=== PATIENT | female | born 1990 | race Caucasian/White ===

== ENCOUNTER 2020-10-12 05:51 | Inpatient (IN) | payer OTHER ==
[2020-10-12] MEDS ORDERED: HYDROmorphone 1 MG/ML 1 ML SYRINGE IVP STA (05:53)
[2020-10-12] MEDS ORDERED: LORazepam 2 MG/ML INJ IV STA (05:53)
[2020-10-12] MEDS ORDERED: ONDANSETRON 4 MG/2 ML VIAL IVP STA (05:53)
[2020-10-12] MEDS ORDERED: SODIUM CHLORIDE 0.9% 1,000 ML IV STA (05:53)
[2020-10-12] MEDS ORDERED: diphenhydrAMINE 50 MG/ML 1 ML VIAL IVP STA (05:53)
[2020-10-12] MEDS ORDERED: hydrALAZINE HCL 20 MG/ML 1 ML VIAL IVP STA (05:54)
[2020-10-12] MEDS ORDERED: ALBUTEROL NEBULIZED 2.5 MG/3 ML INHALATION STA (05:55)
[2020-10-12] MEDS ORDERED: IPRATROPIUM-ALBUTEROL 3 ML NEB INHALATION STA (05:55)
--- NOTE | 2020-10-12 05:55 | ED ---
Recheck HPI - General Stated Complaint: OANH Time Seen by Provider: 10/12/20 05:53 Source: RN notes reviewed, old records reviewed Mode of arrival: EMS Limitations: no limitations - History of Present Illness Initial Comments: This is a 30-year-old female DF for evaluation. Patient is complicated medical history. She coming in as a transfer patient night for hypertensive emergency with CHF and respiratory failure on BiPAP and acute on chronic renal failure. Patient is awake and alert here in the ER she does complain of anxiety and is complaining of generalized pain. Patient states that she was at a different hospital prior to [facility] signed out AMA after arguing with her physicians there. On presentation to [facility] she was significantly short of breath. Patient at this time is just complaining of anxiety and pain she does admit to shortness of breath when the BiPAP is off Complaint: abnormal lab (CHF,HTNemergency), other (pain,anxiety) -: days(s) Returns Today for: Called Because of Abnormal Lab/Test (CHF), persistent/worsening pain related to initial visit Symptoms Since Prior Visit: worsening pain Context: planned re-check (patient transfer at request of patient) Associated Symptoms: chills, shortness of breath Treatments Prior to Arrival: IV/IO, other medications, Given Pain Meds on - Related Data Allergies Allergy/AdvReac Type Severity Reaction Status Date / Time azithromycin Allergy Unknown Verified 10/12/20 06:13 divalproex sodium Allergy Unknown Verified 10/12/20 06:13 [From [facility]] Review of Systems ROS Statement: Those systems with pertinent positive or pertinent negative responses have been documented in the HPI. ROS Other: All systems not noted in ROS Statement are negative. General Exam General appearance: alert, anxious, in distress, cachectic Head exam: Present: atraumatic, normocephalic, normal inspection Eye exam: Present: normal appearance, PERRL, EOMI. Absent: scleral icterus, conjunctival injection, periorbital swelling ENT exam: Present: normal exam, mucous membranes moist Neck exam: Present: normal inspection. Absent: tenderness, meningismus, lymphadenopathy Respiratory exam: Present: respiratory distress, accessory muscle use, decreased breath sounds, prolonged expiratory. Absent: wheezes, rales, rhonchi, stridor Cardiovascular Exam: Present: normal rhythm, tachycardia, normal heart sounds. Absent: systolic murmur, diastolic murmur, rubs, gallop, clicks GI/Abdominal exam: Present: soft, normal bowel sounds. Absent: distended, tenderness, guarding, rebound, rigid Extremities exam: Present: normal inspection, full ROM, normal capillary refill. Absent: tenderness, pedal edema, joint swelling, calf tenderness Back exam: Present: normal inspection Neurological exam: Present: alert, oriented X3, CN II-XII intact Psychiatric exam: Present: normal affect, normal mood Skin exam: Present: warm, dry, intact, normal color. Absent: rash Course Vital Signs 10/12/20 10/12/20 10/12/20 05:52 06:00 06:23 Temperature 98.1 F Pulse Rate 98 96 93 Respiratory 20 Rate Blood Pressure 211/137 O2 Sat by Pulse 100 Oximetry 10/12/20 10/12/20 10/12/20 06:40 06:42 06:44 Temperature Pulse Rate 130 H 135 H Respiratory 18 Rate Blood Pressure 203/140 204/132 194/130 O2 Sat by Pulse 98 99 Oximetry 10/12/20 10/12/20 10/12/20 06:46 06:48 06:50 Temperature Pulse Rate Respiratory Rate Blood Pressure 181/127 184/120 154/115 O2 Sat by Pulse Oximetry 10/12/20 10/12/20 10/12/20 06:52 06:54 06:55 Temperature Pulse Rate 135 H Respiratory 19 Rate Blood Pressure 174/124 148/104 151/99 O2 Sat by Pulse 98 Oximetry - Reevaluation(s) Reevaluation #1: 10/12/20 06:58 Medical record is reviewed Reevaluation #2: 10/12/20 06:58 Spoke with transferring physician Transfer paperwork has been reviewed - Consultations Consultation #1: Spoke with agrees to admit this patient Medical Decision Making - Medical Decision Making 30 female accepted in transfer severe hypertensive emergency with CHF. Patient has just complains of pain here in the emergency department chest pain. Severe anxiety, to be admitted for BP control, Patient feeling improved. - Lab Data Result diagrams: 10/12/20 06:17 10/12/20 06:17 Lab Results 10/12/20 10/12/20 10/12/20 Range/Units 06:17 06:17 06:17 WBC 17.1 H (3.8-10.6) k/uL RBC 3.57 L (3.80-5.40) m/uL Hgb 11.4 (11.4-16.0) gm/dL Hct 33.2 L (34.0-46.0) % MCV 93.0 (80.0-100.0) fL MCH 31.8 (25.0-35.0) pg MCHC 34.2 (31.0-37.0) g/dL RDW 15.2 (11.5-15.5) % Plt Count 290 (150-450) k/uL MPV 7.6 Neutrophils % 91 % Lymphocytes % 4 % Monocytes % 2 % Eosinophils % 2 % Basophils % 1 % Neutrophils # 15.6 H (1.3-7.7) k/uL Lymphocytes # 0.7 L (1.0-4.8) k/uL Monocytes # 0.4 (0-1.0) k/uL Eosinophils # 0.3 (0-0.7) k/uL Basophils # 0.1 (0-0.2) k/uL PT 10.3 (9.0-12.0) sec INR 1.0 (<1.2) APTT 22.9 (22.0-30.0) sec Sodium 138 (137-145) mmol/L Potassium 4.2 (3.5-5.1) mmol/L Chloride 108 H (98-107) mmol/L Carbon Dioxide 20 L (22-30) mmol/L Anion Gap 10 mmol/L BUN 48 H (7-17) mg/dL Creatinine 2.59 H (0.52-1.04) mg/dL Est GFR (CKD-EPI)AfAm 27 (>60 ml/min/1.73 sqM) Est GFR (CKD-EPI)NonAf 24 (>60 ml/min/1.73 sqM) Glucose 107 H (74-99) mg/dL Plasma Lactic Acid Isaac (0.7-2.0) mmol/L Calcium 9.1 (8.4-10.2) mg/dL Phosphorus 6.0 H (2.5-4.5) mg/dL Magnesium 2.2 (1.6-2.3) mg/dL Total Bilirubin 0.3 (0.2-1.3) mg/dL AST 63 H (14-36) U/L ALT 55 H (4-34) U/L Alkaline Phosphatase 194 H (38-126) U/L Creatine Kinase 36 (30-135) U/L C-Reactive Protein 0.8 (<1.0) mg/dL NT-Pro-B Natriuret Pep pg/mL Total Protein 6.4 (6.3-8.2) g/dL Albumin 4.2 (3.5-5.0) g/dL 10/12/20 10/12/20 Range/Units 06:17 06:17 WBC (3.8-10.6) k/uL RBC (3.80-5.40) m/uL Hgb (11.4-16.0) gm/dL Hct (34.0-46.0) % MCV (80.0-100.0) fL MCH (25.0-35.0) pg MCHC (31.0-37.0) g/dL RDW (11.5-15.5) % Plt Count (150-450) k/uL MPV Neutrophils % % Lymphocytes % % Monocytes % % Eosinophils % % Basophils % % Neutrophils # (1.3-7.7) k/uL Lymphocytes # (1.0-4.8) k/uL Monocytes # (0-1.0) k/uL Eosinophils # (0-0.7) k/uL Basophils # (0-0.2) k/uL PT (9.0-12.0) sec INR (<1.2) APTT (22.0-30.0) sec Sodium (137-145) mmol/L Potassium (3.5-5.1) mmol/L Chloride (98-107) mmol/L Carbon Dioxide (22-30) mmol/L Anion Gap mmol/L BUN (7-17) mg/dL Creatinine (0.52-1.04) mg/dL Est GFR (CKD-EPI)AfAm (>60 ml/min/1.73 sqM) Est GFR (CKD-EPI)NonAf (>60 ml/min/1.73 sqM) Glucose (74-99) mg/dL Plasma Lactic Acid Isaac 0.5 L (0.7-2.0) mmol/L Calcium (8.4-10.2) mg/dL Phosphorus (2.5-4.5) mg/dL Magnesium (1.6-2.3) mg/dL Total Bilirubin (0.2-1.3) mg/dL AST (14-36) U/L ALT (4-34) U/L Alkaline Phosphatase (38-126) U/L Creatine Kinase (30-135) U/L C-Reactive Protein (<1.0) mg/dL NT-Pro-B Natriuret Pep 11913 pg/mL Total Protein (6.3-8.2) g/dL Albumin (3.5-5.0) g/dL - EKG Data -: EKG Interpreted by Me (EKG shows sinus a 92 FL 136 QRS 84 QTc 469) - Radiology Data Radiology results: report reviewed (CXR is positive for mild interstitial pneumonitis, chf), image reviewed Critical Care Time Critical Care Time: Yes Total Critical Care Time: 31 Disposition Clinical Impression: Asthma with acute exacerbation, Community acquired pneumonia, Acute pulmonary edema, Congestive heart failure, Hypertensive emergency, Acute respiratory failure, ARF (acute renal failure), Anxiety Disposition: ADMITTED IP TO THIS HOSP Condition: Serious Is patient prescribed a controlled substance at d/c from ED?: No Referrals: Abdon Vega MD [Primary Care Provider] - 1-2 days
[2020-10-12 06:30] LABS: Basophils # (A) 0.1 k/uL (0-0.2); Basophils % (A) 1 %; Eosinophils # (A) 0.3 k/uL (0-0.7); Eosinophils % (A) 2 %; HCT 33.2 % (34.0-46.0); HGB 11.4 gm/dL (11.4-16.0); Lymphocytes # (A) 0.7 k/uL (1.0-4.8); Lymphocytes % (A) 4 %; MCH 31.8 pg (25.0-35.0); MCHC 34.2 g/dL (31.0-37.0); Mean Platelet Volume 7.6; Monocytes # (A) 0.4 k/uL (0-1.0); Monocytes % (A) 2 %; Neutrophils # (A) 15.6 k/uL (1.3-7.7); Neutrophils % (A) 91 %; Platelet Count 290 k/uL (150-450); RBC 3.57 m/uL (3.80-5.40); RDW 15.2 % (11.5-15.5); WBC 17.1 k/uL (3.8-10.6)
[2020-10-12] MEDS: CLEVIDIPINE BUTYRATE 25 MG in EMPTY BAG 1 BAG IV SCH ×7 (06:32→23:58)
[2020-10-12 06:37] LABS: Albumin 4.2 g/dL (3.5-5.0); C Reactive Protein 0.8 mg/dL (<1.0); Calcium 9.1 mg/dL (8.4-10.2); Magnesium 2.2 mg/dL (1.6-2.3); Potassium 4.2 mmol/L (3.5-5.1); Total Bilirubin 0.3 mg/dL (0.2-1.3); Total Protein 6.4 g/dL (6.3-8.2)
[2020-10-12 06:39] LABS: Partial Thromboplastin Time 22.9 sec (22.0-30.0); Prothrombin Time 10.3 sec (9.0-12.0)
--- NOTE | 2020-10-12 06:46 | XR ---
EXAM: XR Chest, 1 View CLINICAL HISTORY: ITS.REASON XR Reason: sob TECHNIQUE: Frontal view of the chest. COMPARISON: No relevant prior studies available. FINDINGS: Lungs: Mild hazy increased density in the mid to lower lungs bilaterally consistent with mild pulmonary edema or interstitial pneumonitis. No lobar consolidation is seen. Pleural space: Unremarkable. No pneumothorax. Heart: The heart and mediastinum appear within normal limits. Mediastinum: Unremarkable. Bones/joints: Unremarkable. Tubes, lines and devices: There is a right-sided tunneled hemodialysis catheter in standard position. IMPRESSION: 1. There is a right-sided tunneled hemodialysis catheter in standard position. 2. Mild hazy increased density in the mid to lower lungs bilaterally consistent with mild pulmonary edema or interstitial pneumonitis. No lobar consolidation is seen.
[2020-10-12] MEDS ORDERED: LEVOFLOXACIN 750MG-D5W PMX 750 MG in DEXTROSE/WATER 1 150ML.BAG IVPB STA (06:50)
[2020-10-12] MEDS ORDERED: NALOXONE 0.4 MG/ML 1 ML VIAL IV PRN (06:50)
[2020-10-12] MEDS ORDERED: PNEUMONIA PROTOCOL UTILIZED 1 EACH MISC PO PRN (06:50)
[2020-10-12] MEDS ORDERED: ONDANSETRON 4 MG/2 ML VIAL IVP PRN (06:50)
[2020-10-12] MEDS ORDERED: METOPROLOL TARTRATE 5 MG/5 ML VIAL IVP STA (06:56)
[2020-10-12] MEDS ORDERED: DIAZEPAM 5 MG/ML 2 ML INJ IVP STA (06:56)
[2020-10-12] MEDS ORDERED: diphenhydrAMINE 50 MG/ML 1 ML VIAL IVP PRN (06:56)
[2020-10-12] MEDS ORDERED: SODIUM CHLORIDE 0.9% 1,000 ML IV SCH (07:00)
[2020-10-12] MEDS: ALBUTEROL NEBULIZED 2.5 MG/3 ML INHALATION SCH ×4 (07:58→20:27)
[2020-10-12 08:33] LABS: Glucose,Whole Blood 129 mg/dL (75-99)
[2020-10-12] MEDS: HYDROmorphone 1 MG/ML 1 ML SYRINGE IVP PRN ×2 (08:54→11:47)
[2020-10-12] MEDS ORDERED: PANTOPRAZOLE 40 MG/10 ML VIAL IV SCH (09:00)
--- NOTE | 2020-10-12 09:29 | P.CNPUL ---
History of Present Illness Consult date: 10/12/20 Chief complaint: hypertension urgerncy History of present illness: 30-year-old female patient who comes in to our hospital was 10 increased shor tness of breath, acute pulmonary edema, acute hypertensive emergency. She has a very complex and complicated history. She has received her care through [facility] in [place] and [facility]. 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 Nevertheless, I do not see that she is on any supplements for now. She states that she was on hormone supplements in the past and this was discontinued after her most recent . She is also known to have hypertension, chronic kidney disease, co ngestion heart failure. The patient came in yesterday to the emergency department having increased shortness of breath. She was briefly placed on BiPAP. Her chest x-ray was consistent with pulmonary edema. COVID-19 testing was negative. Her blood pressure was as high as 211/137. She was started on Celebrex drip which is currently running at 4 mg an hour. Her blood pressures under better control. She was also given Levaquin. Currently she has a Thakkar catheter in place which is producing adequate amount of urine output. She also has a permacath in her right subclavian. She apparently was on hemodialysis at [facility] and she has received hemodialysis since June 2020. As such, the catheter has been placed and has been kept in place. No angina. No palpitation. Occasional sputum production. She has history of smoking. 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 She is smoking marijuana. Initially she went to [facility] and she signed out AMA, I think there was an issue with her pain medication which she wanted more pain medications to be given and she signed herself out. She is currently resting comfortably in bed. She wants a Thakkar catheter to be taken out. In terms of her blood work, her white cell count is at 17.1. Hemoglobin is at 11.4. Normal coagulation profile. Creatinine is 2.5. Lactic acid level is at 0.5. Sodium is at 138. ProBNP level is 31,900. Troponins of 0.137. Liver function tests are within normal limits. The patient's EKG showed a normal sinus rhythm. Left ventricular hypertrophy pattern has been seen related to chronic hypertension. Review of Systems Constitutional: Reports daytime sleepiness, Reports fatigue, Reports weakness Eyes: denies as per HPI, denies blurred vision, denies bulging eye, denies decreased vision, denies diplopia, denies discharge, denies dry eye, denies irritation, denies itching, denies pain, denies photophobia, denies loss of peripheral vision, denies loss of vision, denies tunnel vision/blind spots Ears: deny: decreased hearing, ear discharge, earache, tinnitus Ears, nose, mouth and throat: Reports as per HPI Breasts: absent: as per HPI, change in shape, gynecomastia, masses, nipple discharge, pain, skin changes, swelling Cardiovascular: Reports decreased exercise tolerance, Reports dyspnea on exertion, Reports shortness of breath Respiratory: Reports cough, Reports dyspnea Gastrointestinal: Reports as per HPI Genitourinary: Reports as per HPI Menstruation: Reports as per HPI Musculoskeletal: Reports muscle weakness Musculoskeletal: absent: ankle pain, ankle stiffness, ankle swelling Integumentary: Reports as per HPI Neurological: Reports seizures, Reports weakness Psychiatric: Reports as per HPI Endocrine: Reports as per HPI (?? DI) Hematologic/Lymphatic: Reports as per HPI Allergic/Immunologic: Reports as per HPI Past Medical History Past Medical History: Heart Failure, Hypertension Additional Past Medical History / Comment(s): Histiocytosis X, Diabetis insipidus chronic kidney failure, HTN, Heroin use, CHF Past Surgical History: Section Smoking Status: Current every day smoker Past Alcohol Use History: None Reported Past Drug Use History: Marijuana Medications and Allergies Home Medications Medication Instructions Recorded Confirmed Type Carvedilol [Coreg] 25 mg PO BID 10/12/20 10/12/20 History Prazosin HCl [Minipress] 2 mg PO DAILY 10/12/20 10/12/20 History Spironolactone 50 mg PO DAILY 10/12/20 10/12/20 History hydrOXYzine pamoate [Vistaril] 25 mg PO Q12H PRN 10/12/20 10/12/20 History Allergies Allergy/AdvReac Type Severity Reaction Status Date / Time azithromycin Allergy Unknown Verified 10/12/20 08:25 divalproex sodium Allergy Unknown Verified 10/12/20 08:25 [From Depakote] Physical Exam Vitals: Vital Signs Temp Pulse Resp BP Pulse Ox 10/12/20 08:15 98.1 F 62 16 110/82 100 10/12/20 08:00 110 H 16 152/114 100 10/12/20 07:12 158/102 10/12/20 07:03 128 H 155/107 99 10/12/20 07:01 147/99 10/12/20 06:59 149/95 10/12/20 06:57 161/106 10/12/20 06:55 151/99 10/12/20 06:54 135 H 19 148/104 98 10/12/20 06:52 174/124 10/12/20 06:50 154/115 10/12/20 06:48 184/120 10/12/20 06:46 181/127 10/12/20 06:44 135 H 18 194/130 99 10/12/20 06:42 204/132 10/12/20 06:40 130 H 203/140 98 10/12/20 06:23 93 10/12/20 06:00 96 10/12/20 05:52 98.1 F 98 20 211/137 100 Intake and Output 10/11/20 10/12/20 10/12/20 22:59 06:59 14:59 Intake Total 2.034 7.867 Output Total 575 300 Balance -572.966 -292.133 Intake: Intake, IV Titration 2.034 7.867 Amount Clevidipine Butyrate 25 2.034 7.867 mg In Empty Bag 1 bag @ 1 MG/HR 2 mls/hr IV .Q24H [facility] Rx#:[id number] Output: Urine 575 300 Other: Weight 49.895 kg Appearance calm and comfortable, BMI of 19.5, breathing is nonlabored Head exam was generally normal. There was no scleral icterus or corneal arcus. Mucous membranes were moist. Examination of the neck shows a right IJ permacath. No JVDs. No goiter or neck masses. Lungs sounds are diminished and there is some few crackles at lung bases bilaterally. Heart sounds are tachycardic, there is a faint grade 2 murmur appreciated in the left apex. Abdominal exam revealed normal bowel sounds. The abdomen was soft, non-tender, and without masses, organomegaly, or appreciable enlargement of the abdominal aorta. Examination of the extremities revealed easily palpable radial, femoral and pedal pulses. There was no cyanosis, clubbing or edema. Examination of the skin revealed no evidence of significant rashes, suspicious appearing nevi or other concerning lesions. Results - Laboratory Findings CBC and BMP: 10/12/20 06:17 10/12/20 06:17 PT/INR, D-dimer PT 10.3 sec (9.0-12.0) 10/12/20 06:17 INR 1.0 (<1.2) 10/12/20 06:17 Abnormal lab findings: Abnormal Labs 10/12/20 10/12/20 10/12/20 06:17 06:17 06:17 WBC 17.1 H RBC 3.57 L Hct 33.2 L Neutrophils # 15.6 H Lymphocytes # 0.7 L Chloride 108 H Carbon Dioxide 20 L BUN 48 H Creatinine 2.59 H Glucose 107 H POC Glucose (mg/dL) Plasma Lactic Acid Isaac 0.5 L Phosphorus 6.0 H AST 63 H ALT 55 H Alkaline Phosphatase 194 H Troponin I 10/12/20 10/12/20 06:17 08:32 WBC RBC Hct Neutrophils # Lymphocytes # Chloride Carbon Dioxide BUN Creatinine Glucose POC Glucose (mg/dL) 129 H Plasma Lactic Acid Isaac Phosphorus AST ALT Alkaline Phosphatase Troponin I 0.137 H* - Diagnostic Findings Chest x-ray: image reviewed Assessment and Plan Plan: 1 Acute hypertensive emergency, currently on several packs drip for blood pressure control. She is known to have chronic hypertension. 2 acute pulmonary edema secondary to acute hypertensive emergency, initially placed on BiPAP and currently is in oxygen at room air as the patient's blood pressures under better control and she is diuresing well 3 chronic kidney disease. The patient has required dialysis in the past and currently she is off dialysis for the past 4 months. She still has a permacath in place 4 known history of histiocytosis X. She claims to have had issues with diabetes insipidus and pituitary insufficiency. She has been maintained on any form of hormonal replacement or supplements at this point in time. No signs of any adrenal insufficiency. No signs of any diabetes insipidus for now. 5 congestion heart failure, consider hypertensive heart disease. She does have LVH on EKG and her proBNP level is quite elevated 6 remote history of seizure disorder, currently not receiving any form of antiepileptic medication 7 history of marijuana use and previous history of IV drug use with heroin 8 smoker. HCELY Start the patient on Lasix 80 mg IV twice a day Restart the patient on on Coreg for tighter blood pressure control in combination with hydralazine and IV every 4-6 hours when necessary for systolic blood pressure systolic of above 140 Gradually wean of the Naproxen discontinue Check free T4 and TSH, cortisol level nephrology regarding her chronic kidney disease echocardiogrm We'll keep the patient in the intensive care unit until she is off the clevipres drip
--- NOTE | 2020-10-12 09:30 | P.NPCON ---
History of Present Illness - Reason for Consult end stage renal disease - History of Present Illness Reason for consultation: Chronic kidney disease History of present illness: The patient is a 30-year-old female seen in evaluation for chronic kidney disease. Unknown baseline renal function. Patient presented to the hospital with worsening shortness of breath. She denies any fever or cough. Her proBNP was elevated at 31,000. Patient has a right chest permacath and states she was on hemodialysis but was stopped in June 2020. She follows with a pharmacy account director out of [place]. She does make urine. No hematuria or dysuria. No history of diabetes. She complains of generalized pain. Patient's blood pressure on admission was over 200 systolic and 140 diastolic. She is currently on Cleviprex drip. Blood pressures better controlled. Denies chest pain. No vomiting or diarrhea. Denies use of nonsteroidals. She's been on BiPAP and is now on nasal cannula. She is receiving IV fluids. Vital signs are stable. General: The patient appeared well nourished and normally developed. HEENT: Currently on nasal cannula. LUNGS: Breath sounds decreased. HEART: Rate and Rhythm are regular. ABDOMEN: Soft, no distention. EXTREMITITES: No edema. Past Medical History Past Medical History: Heart Failure, Hypertension Additional Past Medical History / Comment(s): Histiocytosis X, Diabetis insipidus chronic kidney failure, HTN, Heroin use, CHF Past Surgical History: Section Smoking Status: Current every day smoker Past Alcohol Use History: None Reported Past Drug Use History: Marijuana Medications and Allergies Home Medications Medication Instructions Recorded Confirmed Type Carvedilol [Coreg] 25 mg PO BID 10/12/20 10/12/20 History Prazosin HCl [Minipress] 2 mg PO DAILY 10/12/20 10/12/20 History Spironolactone 50 mg PO DAILY 10/12/20 10/12/20 History hydrOXYzine pamoate [Vistaril] 25 mg PO Q12H PRN 10/12/20 10/12/20 History Allergies Allergy/AdvReac Type Severity Reaction Status Date / Time azithromycin Allergy Unknown Verified 10/12/20 08:25 divalproex sodium Allergy Unknown Verified 10/12/20 08:25 [facility] Physical Exam Vitals: Vital Signs Temp Pulse Resp BP Pulse Ox 10/12/20 08:15 98.1 F 62 16 110/82 100 10/12/20 08:00 110 H 16 152/114 100 10/12/20 07:12 158/102 10/12/20 07:03 128 H 155/107 99 10/12/20 07:01 147/99 10/12/20 06:59 149/95 10/12/20 06:57 161/106 10/12/20 06:55 151/99 10/12/20 06:54 135 H 19 148/104 98 10/12/20 06:52 174/124 10/12/20 06:50 154/115 10/12/20 06:48 184/120 10/12/20 06:46 181/127 10/12/20 06:44 135 H 18 194/130 99 10/12/20 06:42 204/132 10/12/20 06:40 130 H 203/140 98 10/12/20 06:23 93 10/12/20 06:00 96 10/12/20 05:52 98.1 F 98 20 211/137 100 Intake and Output 10/11/20 10/12/20 10/12/20 22:59 06:59 14:59 Intake Total 2.034 7.867 Output Total 575 300 Balance -572.966 -292.133 Intake: Intake, IV Titration 2.034 7.867 Amount Clevidipine Butyrate 25 2.034 7.867 mg In Empty Bag 1 bag @ 1 MG/HR 2 mls/hr IV .Q24H [facility] Rx#:[id number] Output: Urine 575 300 Other: Weight 49.895 kg Results - Lab Results Most recent lab results Calcium 9.1 mg/dL (8.4-10.2) 10/12/20 06:17 Phosphorus 6.0 mg/dL (2.5-4.5) H 10/12/20 06:17 Magnesium 2.2 mg/dL (1.6-2.3) 10/12/20 06:17 10/12/20 06:17 10/12/20 06:17 Assessment and Plan Plan: Assessment: 1. Chronic kidney disease. Unknown baseline renal function. Creatinine today was 2.59. Patient states she was on hemodialysis in the past and was stopped in June 2020 due to recovery of renal function. She still has a right chest permacath. She follows a pharmacy account director at a [place]. 2. Hypertensive emergency maintained on Cleviprex. 3. Metabolic acidosis secondary to chronic kidney disease. 4. Hyperphosphatemia secondary to chronic kidney disease. 5. Volume overload. Plan: Hep-Lock IV fluids. Add IV Lasix 80 mg twice daily. Check UA and renal ultrasound. Resume Coreg. Add hydralazine 10 mg IV every 4 hours as needed for systolic blood pressure greater than 160. Avoid rapid decline in blood pressure. Add oral bicarbonate. Resume Renvela. Continue to monitor renal function and urine output. Check set of blood cultures. Follow-up echocardiogram. Continue to assess daily for need for renal replacement therapy. If no renal replacement therapy needed, permacath should be removed. Thank you for the consultation. I will continue to follow the patient with you during her hospital stay.
[2020-10-12] MEDS: SODIUM BICARBONATE TAB 650 MG TAB PO SCH ×2 (09:54→22:06)
[2020-10-12] MEDS: FUROSEMIDE 10 MG/ML 10 ML VIAL IV SCH ×2 (09:54→22:06)
[2020-10-12] MEDS: LORazepam 2 MG/ML INJ IV PRN ×4 (09:55→22:10)
--- NOTE | 2020-10-12 11:11 | US ---
EXAMINATION TYPE: US kidneys/renal and bladder DATE OF EXAM: 10/12/2020 COMPARISON: NONE CLINICAL HISTORY: neelima. NEELIMA EXAM MEASUREMENTS: Right Kidney: 9.2 x 3.6 x 3.8 cm Left Kidney: 9.8 x 3.6 x 4.6 cm Right Kidney: No hydronephrosis or masses seen Left Kidney: No hydronephrosis or masses seen Bladder: wnl Bilateral Jets seen: Yes There is no evidence for hydronephrosis at this point in time. No nephrolithiasis is seen. No frankie s are identified. Cortical medullary differentiation is maintained, cortical echogenicity is increas ed The urinary bladder is anechoic. Bilateral ureteral jets are seen. IMPRESSION: Correlate for medical renal disease
[2020-10-12] MEDS: carvediloL 6.25 MG TAB PO SCH ×2 (11:46→16:45)
[2020-10-12] MEDS: SEVELAMER 800 MG TAB PO SCH ×2 (11:46→16:44)
[2020-10-12] MEDS ORDERED: NON FORMULARY DRUG (Carvedilol [Coreg] 25 MG Tablet) PO SCH (12:15)
[2020-10-12] MEDS ORDERED: ZOLPIDEM 5 MG TAB PO PRN (12:50)
--- NOTE | 2020-10-12 12:52 | P.HPIM ---
History of Present Illness H&P Date: 10/12/20 Chief Complaint: Short of breath History of presenting complaint: This is a 30-year-old patient who follows with an oncologist . 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 It does end wall several of her bones. Patient had presented to:[facility] in [place]. She was having accelerated hypertension. She says she left from there AMA because she was told she was a drug seeker was asking for Ativan. She then yesterday presented to [facility]. For that she was transferred here. 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 Does smoke half a pack a day. Has a cough. Slight sputum. Denies any fever and chills. Appetite is fair. Denies any obvious chest pain. Patient is tearful as she say she is missing the children. No obvious edema. Patient's the ICU. On IV Cleviprex. Initially she was in a BiPAP and based on nasal cannula. Patient had received hemodialysis through recently. Review of systems: GEN.: Tired EYES: None HEENT: None NECK: None RESPIRATORY: As above CARDIOVASCULAR: None GASTROINTESTINAL: None GENITOURINARY: None MUSCULOSKELETAL: None LYMPHATICS: None HEMATOLOGICAL: None PSYCHIATRY: Anxious NEUROLOGICAL: Has been having frontal headache on and off for about a month. No change in vision or focal symptoms. Past medical history to include: Heart failure, hypertension, diabetes insipidus, histocytosis X, chronic kidney disease, hypertension, anxiety Social history: Lives with her . Smokes half a pack a day. Also does smoke marijuana. Says has been clean for last 15 months. Methamphetamine and [place]. It also occasionally do fentanyl. Family history: Reviewed, noncontributory to presentation Physical examination: VITAL SIGNS: 98, 98, 20, 211 x 1 37, 100% on 15 L nonrebreather upon presentation. Currently 95% on room air GENERAL: BMI 19.5, sitting up in bed, tearful. EYES: Pupils equal. Conjunctiva normal. HEENT: External appearance of nose and ears normal, oral cavity grossly normal. NECK: JVD not raised; masses not palpable. HEART: First and second heart sounds are normal; no edema. LUNGS: Respiratory rate increased, decreased breath sounds. ABDOMEN: Soft, nontender, liver spleen not palpable, no masses palpable. PSYCH: [Alert and oriented x3; mood and affect anxious. NEUROLOGICAL: Cranial nerves grossly intact; no facial asymmetry, power and sensation grossly intact. LYMPHATICS: No lymph nodes palpable in the axilla and neck INVESTIGATIONS, reviewed in the clinical context: Initial ultrasound: No hydronephrosis. Corticomedullary different sensation is maintained. Cortical echogenicity is increased. WBC 17.1 hemoglobin 11.4 platelets 290 potassium 4.2 BUN 48 creatinine 2.59 AST 63 ALT 55 Troponin I 0.137, 0.150 CRP 0.8 ProBNP 33286 EKG tracing personally reviewed by me-normal sinus rhythm, LVH with some ST segment changes Chest x-ray film personally reviewed by me-questionable infiltrate Assessment and plan: -Hypertensive emergency Patient on IVCleviprex drip -Acute congestive heart failure exacerbation from hypertensive heart disease IV Lasix -Acute on chronic kidney disease. Baseline creatinine is not known. A renal ultrasound ordered. Strict I's and O's. Nephrology consulted. -Chronic nicotine dependence, patient cigarette smoker Nicotine patch -Anxiety not otherwise specified Start Paxil 10 mg a day. Ativan when necessary -Histocytosis X -Acute hypoxic respiratory failure from CHF. Initially on a BiPAP. Currently nasal cannula -Persistent cephalgia for about a month. She is waiting to see a neurologist. We'll consult Dr. Matos. -Acute bronchospasm from smoking Albuterol nebulizer -Metabolic acidosis from kidney failure. Sodium bicarbonate by mouth Admitted to the ICU. Oxygen supplementation. On nasal cannula now. Consultation to oyster tonger, nephrology, cardiology. On Cleviprex drip. Bronchodilators. Coreg 6.25 mg twice daily. Paxil. IV Lasix. Follow lites closely. Given the complexity and severity of patient's condition expect the patient to be in the hospital at least for 2 overnights Past Medical History Past Medical History: Heart Failure, Hypertension Additional Past Medical History / Comment(s): Histiocytosis X, Diabetis insipidus chronic kidney failure, HTN, Heroin use, CHF History of Any Multi-Drug Resistant Organisms: None Reported Past Surgical History: Section Past Anesthesia/Blood Transfusion Reactions: No Reported Reaction Smoking Status: Current every day smoker Past Alcohol Use History: None Reported Past Drug Use History: Marijuana Medications and Allergies Home Medications Medication Instructions Recorded Confirmed Type Carvedilol [Coreg] 25 mg PO BID 10/12/20 10/12/20 History Prazosin HCl [Minipress] 2 mg PO DAILY 10/12/20 10/12/20 History Spironolactone 50 mg PO DAILY 10/12/20 10/12/20 History hydrOXYzine pamoate [Vistaril] 25 mg PO Q12H PRN 10/12/20 10/12/20 History Allergies Allergy/AdvReac Type Severity Reaction Status Date / Time azithromycin Allergy Unknown Verified 10/12/20 08:25 divalproex sodium Allergy Unknown Verified 10/12/20 08:25 [From [facility]] Physical Exam Vitals: Vital Signs Temp Pulse Resp BP Pulse Ox 10/12/20 08:15 98.1 F 62 16 110/82 100 10/12/20 08:00 110 H 16 152/114 100 10/12/20 07:12 158/102 10/12/20 07:03 128 H 155/107 99 10/12/20 07:01 147/99 10/12/20 06:59 149/95 10/12/20 06:57 161/106 10/12/20 06:55 151/99 10/12/20 06:54 135 H 19 148/104 98 10/12/20 06:52 174/124 10/12/20 06:50 154/115 10/12/20 06:48 184/120 10/12/20 06:46 181/127 10/12/20 06:44 135 H 18 194/130 99 10/12/20 06:42 204/132 10/12/20 06:40 130 H 203/140 98 10/12/20 06:23 93 10/12/20 06:00 96 10/12/20 05:52 98.1 F 98 20 211/137 100 Intake and Output 10/11/20 10/12/20 10/12/20 22:59 06:59 14:59 Intake Total 2.034 15.867 Output Total 575 300 Balance -572.966 -284.133 Intake: Intake, IV Titration 2.034 15.867 Amount Clevidipine Butyrate 25 2.034 15.867 mg In Empty Bag 1 bag @ 1 MG/HR 2 mls/hr IV .Q24H [facility] Rx#:[id number] Output: Urine 575 300 Other: Weight 49.895 kg 49.895 kg Results CBC & Chem 7: 10/12/20 06:17 10/12/20 06:17 Labs: Abnormal Lab Results - Last 24 Hours (Table) 10/12/20 10/12/20 10/12/20 Range/Units 06:17 06:17 06:17 WBC 17.1 H (3.8-10.6) k/uL RBC 3.57 L (3.80-5.40) m/uL Hct 33.2 L (34.0-46.0) % Neutrophils # 15.6 H (1.3-7.7) k/uL Lymphocytes # 0.7 L (1.0-4.8) k/uL Chloride 108 H (98-107) mmol/L Carbon Dioxide 20 L (22-30) mmol/L BUN 48 H (7-17) mg/dL Creatinine 2.59 H (0.52-1.04) mg/dL Glucose 107 H (74-99) mg/dL POC Glucose (mg/dL) (75-99) mg/dL Plasma Lactic Acid Isaac 0.5 L (0.7-2.0) mmol/L Phosphorus 6.0 H (2.5-4.5) mg/dL AST 63 H (14-36) U/L ALT 55 H (4-34) U/L Alkaline Phosphatase 194 H (38-126) U/L Troponin I (0.000-0.034) ng/mL 10/12/20 10/12/20 Range/Units 06:17 08:32 WBC (3.8-10.6) k/uL RBC (3.80-5.40) m/uL Hct (34.0-46.0) % Neutrophils # (1.3-7.7) k/uL Lymphocytes # (1.0-4.8) k/uL Chloride (98-107) mmol/L Carbon Dioxide (22-30) mmol/L BUN (7-17) mg/dL Creatinine (0.52-1.04) mg/dL Glucose (74-99) mg/dL POC Glucose (mg/dL) 129 H (75-99) mg/dL Plasma Lactic Acid Isaac (0.7-2.0) mmol/L Phosphorus (2.5-4.5) mg/dL AST (14-36) U/L ALT (4-34) U/L Alkaline Phosphatase (38-126) U/L Troponin I 0.137 H* (0.000-0.034) ng/mL
[2020-10-12] MEDS: SPIRONOLACTONE 25 MG TAB PO SCH (13:00)
[2020-10-12] MEDS ORDERED: ENOXAPARIN 40 MG/0.4 ML SYRINGE SQ SCH (13:00)
[2020-10-12] MEDS ORDERED: PRAZOSIN 1 MG CAP PO SCH (13:00)
[2020-10-12 13:14] LABS: Appearance,Urine Clear (Clear); Bacteria,Urine Occasional /hpf; Bilirubin,Urine Negative (Negative); Blood,Urine Moderate (Negative); Color,Urine Light Yellow; Glucose,Urine (UA) Negative (Negative); Hyaline Casts,Urine 5 /lpf (0-2); Ketones,Urine Negative (Negative); Leukocyte Esterase,Urine Negative (Negative); Nitrite,Urine Negative (Negative); Protein,Urine Negative (Negative); RBC,Urine 4 /hpf (0-5); Specific Gravity,Urine 1.004 (1.001-1.035); Squamous Epithelial Cell,Urine <1 /hpf (0-4); Urobilinogen,Urine <2.0 mg/dL (<2.0); WBC,Urine 1 /hpf (0-5)
[2020-10-12] MEDS: PARoxetine 10 MG TAB PO SCH (13:57)
[2020-10-12] MEDS: ACETAMINOPHEN TAB 325 MG TAB PO PRN (13:58)
[2020-10-12] MEDS: NICOTINE POLACRILEX 2 MG GUM BUCCAL PRN (14:04)
--- NOTE | 2020-10-12 14:55 | P.CNNES ---
History of Present Illness Consult date: 10/12/20 Requesting physician: Brenden Ramirez Reason for Consult: persistant headache History of Present Illness: This is a 30-year-old woman with medical history of seizure, histocytosis X (since 2 years old), hypertension, chronic kidney insufficiency, congestive heart failure, , uncontrolled hypertension pituitary problems with hypopituitarism and diabetes insipidus, anxiety, nicotine use and history of drug use (cocaine use, and other pain medication use but not heroin), marijuana use and use in past who presented to [facility] for increased shortness of breath acute pulmonary edema in acute hypertensive emergency that was sent from the [facility]. She's been having increased shortness of breath for the past 3 days. Neurology is consulted for persistent headache. She initially presented to [facility] this past Tuesday for her shortness of breath but but signed AMA because of the she felt her pain was not being addressed and needed pain medication. She said their they thought she was drug seeking and she was not. Regarding her headaches and she said that the she's been having a headache over the left frontal temporal region for last 9 month or year and half. The headache is constant, she feels that the throbbing, pain is 11/10, she does have photophobia, phonophobia, she sometimes gets nausea and vomiting but currently she is not nauseous or vomiting and she feels that she is having worsening of blurry vision over the left eye that's been going on for 9 months at least. She denies of any new focal weakness, numbness, difficulty getting words out. She said that she has chronic left-sided weakness and numbness. She denies of any and new neck pain She said that during this time her blood pressure has been uncontrolled since December 2019. She does not monitoring her blood pressure at home since cannot afford cuff. She said that that she the had a seizure that was documented at [facility] in December 2019 and it was generalized tonic-clonic seizure and says she was discharged on's Suboxone and Klonopin. Otherwise she doesn't recall having on any other seizure after that or prior to that to her knowledge. She does not recall that seizure episode at the hospital. She has history of histocytosis X since age 2 years old, and had a biopsy of the brain and other parts of the body with confirmed that. She said that her histocytosis X is spread throughout her body. She denies follow-up with a neurologist. She follows up with her oncologist over at [facility]. In the past she was on Ativan for anxiety but her eye physician refuses to prescribe her Ativan per the patient. She smokes less than half a pack a day. She has a history of significant alcohol use, cocaine use and multiple drug use except for hair 1 according to the patient. She said that she took any pill that she had a handle on but has not been doing it for months. She will uses marijuana which helps her with her appetite. Of note she said that she had her bilateral tubes removed. She was on hormone supplements in the past and that was discontinued due to her recent . Patient will medication as Vistaril, spironolactone, Prazosin, Coreg. Some other workup in the hospital consisted of: Initial vital signs his blood pressure of 211/137, heart rate of 98, respiratory of 20, temperature of 98.1 Fahrenheit and pulse ox of the high percent on nonrebreather of 15 L. Since the patient has been our facility she's been afebrile. Her white blood cell is 17.1 thousand and is slightly neutrophilic otherwise the rest of CBC with diff is unremarkable from neuro stand point. Her creatinine is 2.59 and a BUN is 48, AST is 63 and ALT of 55 and alkaline phosp 194 which are elevated. Otherwise sodium is 138, calcium 9.1, magnesium 2.2 which is within normal l imits. The CRP is 0.8 which is within normal limits. Troponin and it's 0.137 the next one is 0.150 Urinalysis is negative for urinary tract infection. Chest x-rays report as there is a right-sided the tunneled hemodialysis catheter is in a standing position. Mild hazy increased density in the mid to lower lung bilaterally consistent with mild pulmonary edema or interstitial pneumonitis. No lobar consolidation is seen. Review of Systems Review of system: The 12 point system was reviewed and apparent positive and negative per HPI. Past Medical History Past Medical History: Heart Failure, Hypertension Additional Past Medical History / Comment(s): Histiocytosis X, Diabetis insipi dus chronic kidney failure, HTN, Heroin use, CHF History of Any Multi-Drug Resistant Organisms: None Reported Past Surgical History: Section Past Anesthesia/Blood Transfusion Reactions: No Reported Reaction Smoking Status: Current every day smoker Past Alcohol Use History: None Reported Past Drug Use History: Marijuana Medications and Allergies Home Medications Medication Instructions Recorded Confirmed Type Carvedilol [Coreg] 25 mg PO BID 10/12/20 10/12/20 History Prazosin HCl [Minipress] 2 mg PO DAILY 10/12/20 10/12/20 History Spironolactone 50 mg PO DAILY 10/12/20 10/12/20 History hydrOXYzine pamoate [Vistaril] 25 mg PO Q12H PRN 10/12/20 10/12/20 History Allergies Allergy/AdvReac Type Severity Reaction Status Date / Time azithromycin Allergy Unknown Verified 10/12/20 08:25 divalproex sodium Allergy Unknown Verified 10/12/20 08:25 [From [facility]] Physical Examination - Vital Signs Vital Signs: Vital Signs Temp Pulse Resp BP Pulse Ox 10/12/20 12:00 97.6 F 110 H 12 178/94 10/12/20 11:30 112 H 8 L 188/97 10/12/20 11:00 111 H 18 203/111 10/12/20 10:30 105 H 14 211/97 10/12/20 10:00 114 H 12 160/95 10/12/20 09:30 118 H 14 146/98 95 10/12/20 09:00 98.0 F 105 H 10 L 156/99 98 10/12/20 08:32 101 H 16 10/12/20 08:15 98.1 F 62 16 110/82 100 10/12/20 08:00 110 H 14 152/114 100 10/12/20 07:12 158/102 10/12/20 07:03 128 H 155/107 99 10/12/20 07:01 147/99 10/12/20 06:59 149/95 10/12/20 06:57 161/106 10/12/20 06:55 151/99 10/12/20 06:54 135 H 19 148/104 98 10/12/20 06:52 174/124 10/12/20 06:50 154/115 10/12/20 06:48 184/120 10/12/20 06:46 181/127 10/12/20 06:44 135 H 18 194/130 99 10/12/20 06:42 204/132 07/11/21 06:40 130 H 203/140 98 10/12/20 06:23 93 10/12/20 06:00 96 10/12/20 05:52 98.1 F 98 20 211/137 100 Intake and Output 10/11/20 10/12/20 10/12/20 22:59 06:59 14:59 Intake Total 2.034 905.867 Output Total 575 600 Balance -572.966 305.867 Intake: Intake, IV Titration 2.034 305.867 Amount Clevidipine Butyrate 25 2.034 15.867 mg In Empty Bag 1 bag @ 1 MG/HR 2 mls/hr IV .Q24H [facility] Rx#:[id number] Levofloxacin 750Mg-D5w 150 Pmx 750 mg In Dextrose/ Water 1 150ml.bag @ 100 mls/hr IVPB [facility] Rx#: [id number] Sodium Chloride 0.9% 1, 140 000 ml @ 100 mls/hr IV . Q10H [facility] Rx#:[id number] Oral 600 Output: Urine 575 600 Other: Voiding Method Toilet # Voids 1 Weight 49.895 kg 49.895 kg GENERAL: The patient is a 30-year-old that appears older than her age and is cachectic, lying in bed and is in mild acute distress but not to the severity she described her headache. Is in tears asking when she will be discharged sin ce she misses her child. HENT: Has neck nodule over posterior region that is circular (from diagnosis of Histocytosis X). On Cleviprex IV drip. CHEST: The heart rate is regular rate rhythm. No murmurs to auscultation. LUNG: Clear to auscultation bilaterally no wheezing noted throughout. Not l abored breathing. ABDOMEN/GI: Bowel sounds present in all 4 quadrants. No tenderness to palpation throughout. NEUROLOGICAL: Higher mental function: The patient is awake, alert, oriented to self, place and time. Patient is following commands. No aphasia and no neglect. Cranial nerves: The pupils are round, equal and reactive to light and accommodation. Visual cochran are full to confrontation throughout. Extraocular movement is intact no nystagmus is noted. Facial sensation is normal to touch throughout. The facial strength is normal throughout. Hearing is normal bilaterally to hand rub. Tongue is midline and moved [id number] without any difficulty. No dysarthria is noted. Shoulder shrug is normal bilaterally. Motor: Gait is normal with normal arms swings. The strength is bilateral elbow extension/flexion is 5-/5 (limited because of pain). Otherwise 5 over 5 throughout. Normal tone and bulk. Cerebellum: Normal finger to nose heel to cisneros bilaterally. Sensation: Sensation is normal to touch throughout. Reflexes (right/left): 2+ throughout. Plantars are downgoing bilaterally. Results - Laboratory Findings CBC and BMP: 10/12/20 06:17 10/12/20 06:17 Abnormal Lab Findings: Abnormal Labs 10/12/20 10/12/20 10/12/20 06:17 06:17 06:17 WBC 17.1 H RBC 3.57 L Hct 33.2 L Neutrophils # 15.6 H Lymphocytes # 0.7 L Chloride 108 H Carbon Dioxide 20 L BUN 48 H Creatinine 2.59 H Glucose 107 H POC Glucose (mg/dL) Plasma Lactic Acid Isaac 0.5 L Phosphorus 6.0 H AST 63 H ALT 55 H Alkaline Phosphatase 194 H Troponin I Urine Blood Urine Bacteria Hyaline Casts 10/12/20 10/12/20 10/12/20 06:17 08:32 09:37 WBC RBC Hct Neutrophils # Lymphocytes # Chloride Carbon Dioxide BUN Creatinine Glucose POC Glucose (mg/dL) 129 H Plasma Lactic Acid Isaac Phosphorus AST ALT Alkaline Phosphatase Troponin I 0.137 H* 0.150 H* Urine Blood Urine Bacteria Hyaline Casts 10/12/20 10/12/20 12:00 12:59 WBC RBC Hct Neutrophils # Lymphocytes # Chloride Carbon Dioxide BUN Creatinine Glucose POC Glucose (mg/dL) Plasma Lactic Acid Isaac Phosphorus AST ALT Alkaline Phosphatase Troponin I 0.137 H* Urine Blood Moderate H Urine Bacteria Occasional H Hyaline Casts 5 H Assessment and Plan Assessment: * Persistent cephalgia (but does not appear to the severity she describe) seems due to uncontrolled hypertension (presents with blood pressure of 211/137). Stated her blood pressure has been uncontrolled since 2019. She also has component of migraine. * History of reported seizure (discharge according to patient at [facility] with GTC seizure) but she does recall having seizure and denies her being discharged with seizure medications. * Acute hypertensive emergency on IV Cleviprex * Acute pulmonary edema secondary due to acute hypertensive emergency * Congestive heart failure * Chronic kidney insufficiency * History of histocytosis X (since 2 years old and had biopsy and reports she has diabetes insipidus and pituitary insufficiency and was on hormonal replacement per ICU there is no signs of diabetes insipidus or adrenal insufficiency\ * Nicotine use * Marijuana use * History of polydrug use (everything except heroin) Plan: * I ordered CT of the head without to rule out any intracranial process. Possibly consider MRI of the brain if her symptoms don't resolve. * I'll give the patient a dose of compazine and Toradol. * I notified the patient about different medication such as Topamax which can help with migraine headaches and seizures and I notified her about the side effects and she refuses. She refuses to be on Depakote, she refuses to be on Elavil. * Keppra would not be ideal for this patient because of her mood disorder. I'm not sure if patient did actually have seizures or was it would withdraw seizures due to alcohol use or medication use since she was on Ativan. * Instead recommended riboflavin 200 mg daily which will help with the headache is after controlled blood pressure her headache continues (reason for low dose is because of kidney insufficiency). * Notified the patient that upon discharge she needs to follow-up with a neurologist within 1-2 weeks. * Nephrology is on board. * Defer the rest of the medical management to the ICU team and primary team. * The patient was counseled on nicotine cessation and the continuation of polydrug cessation. * Patient was notified that per [facility] that she cannot drive for 6 month until seizure free, to avoid any heights, using heavy machinery or swimming unassisted (unsure when last seizure was). The plan is discussed with the patient's nurse. Thank you for the consultation. Eliud Matos M.D. Neuro-hospitalist Time with Patient: Greater than 30
[2020-10-12] MEDS ORDERED: KETOROLAC 15 MG/ML 1 ML VIAL IVP STA (14:57)
[2020-10-12] MEDS ORDERED: PROCHLORPERAZINE INJ 10 MG/2 ML VIAL IM STA (14:57)
--- NOTE | 2020-10-12 15:21 | CONS ---
CONSULTATION CHIEF COMPLAINT: Shortness of breath and uncontrolled hypertension. HISTORY: Melody is a 30-year-old lady with history of hypertensive heart disease, prior history of end-stage renal disease on hemodialysis, recurrent hospital presentations with renal failure with severe uncontrolled hypertension, presented to [facility] with symptoms of worsening shortness of breath. The patient has a right-sided PermCath and on her initial presentation, blood pressures were severely elevated. She complains of generalized pain. Does not have any chest pain, leg edema, PND or orthopnea. PAST MEDICAL HISTORY: Significant for hypertension, chronic renal failure, heroin use. MEDICATIONS: At home included Vistaril, spironolactone, Minipress, Coreg. ALLERGIES: Azithromycin and Depakote. FAMILY HISTORY: Negative for premature coronary artery disease. SOCIAL HISTORY: Negative for current smoking, EtOH abuse or drug abuse. REVIEW OF SYSTEMS: HEENT is unremarkable. Cardiac as described above. Respiratory as described above. GI negative. Genitourinary as described above. Psychosocial negative. Endocrine and derm negative. Oncologic negative. FURNITURE DUSTER negative. PHYSICAL EXAMINATION: On exam she is afebrile, heart rate is 110 beats and blood pressure is 138/90, respiratory is 12, O2 saturation is 95. Chest exam reveals diminished air entry at the bases. Heart exam reveals first and second heart sounds. Abdomen is soft. Examination of the extremities did not reveal any leg edema. Peripheral pulses are felt. LABS: Potassium of 4.2, creatinine is 2.5, hemoglobin is 11.4, platelet count is 290. Troponins are mildly elevated at 0.1, 0.1, 0.1 secondary to renal failure. EKG shows sinus rhythm with changes of left ventricular hypertrophy. ASSESSMENT: 1. Acute severe uncontrolled hypertension. 2. End-stage renal disease. PLAN: Continue the patient on Coreg, Prevpac, Lasix. Add hydralazine 50 every 8 and resume the Minipress that she was on. MMODL / IJN: [id number] /
[2020-10-12] MEDS: hydrALAZINE HCL 20 MG/ML 1 ML VIAL IVP PRN ×2 (16:44→22:06)
--- NOTE | 2020-10-12 17:10 | CT ---
EXAMINATION TYPE: CT brain wo con DATE OF EXAM: 10/12/2020 COMPARISON: None available. HISTORY: headache, htn CT DLP: 1082.4 mGycm. Automated Exposure Control for Dose Reduction was Utilized. TECHNIQUE: CT scan of the head is performed without contrast. FINDINGS: There is no acute intracranial hemorrhage, mass effect, or midline shift identified. The ventricles and sulci are within normal limits in size. The globes are intact and the visualized sin uses are clear. IMPRESSION: No acute intracranial hemorrhage, mass effect, or midline shift is seen.
[2020-10-12] MEDS: Acetaminophen-Codeine 300-30mg TAB PO PRN (18:01)
[2020-10-12] MEDS: FAMOTIDINE 20 MG TAB PO SCH (22:06)
[2020-10-13] MEDS: Acetaminophen-Codeine 300-30mg TAB PO PRN ×6 (02:07→21:18)
[2020-10-13] MEDS: LORazepam 2 MG/ML INJ IV PRN ×5 (02:07→21:21)
[2020-10-13] MEDS: CLEVIDIPINE BUTYRATE 25 MG in EMPTY BAG 1 BAG IV SCH ×5 (02:39→08:22)
[2020-10-13 03:43] LABS: Basophils # (A) 0.1 k/uL (0-0.2); Basophils % (A) 1 %; Eosinophils # (A) 0.5 k/uL (0-0.7); Eosinophils % (A) 6 %; HCT 32.5 % (34.0-46.0); HGB 10.7 gm/dL (11.4-16.0); Lymphocytes # (A) 1.1 k/uL (1.0-4.8); Lymphocytes % (A) 13 %; MCH 30.5 pg (25.0-35.0); MCV 92.3 fL (80.0-100.0); Monocytes # (A) 0.3 k/uL (0-1.0); Monocytes % (A) 4 %; Neutrophils # (A) 6.5 k/uL (1.3-7.7); Neutrophils % (A) 76 %; Platelet Count 234 k/uL (150-450); RBC 3.52 m/uL (3.80-5.40); RDW 15.6 % (11.5-15.5); WBC 8.7 k/uL (3.8-10.6)
[2020-10-13 04:19] LABS: Albumin 3.9 g/dL (3.5-5.0); Calcium 9.1 mg/dL (8.4-10.2); Magnesium 2.1 mg/dL (1.6-2.3); Phosphorus 4.6 mg/dL (2.5-4.5); Potassium 3.5 mmol/L (3.5-5.1); Total Bilirubin 0.6 mg/dL (0.2-1.3); Total Protein 6.1 g/dL (6.3-8.2)
[2020-10-13] MEDS: carvediloL 6.25 MG TAB PO SCH (06:41)
[2020-10-13] MEDS: SEVELAMER 800 MG TAB PO SCH ×3 (06:42→18:17)
[2020-10-13] MEDS: ALBUTEROL NEBULIZED 2.5 MG/3 ML INHALATION SCH ×4 (07:38→20:02)
[2020-10-13] MEDS ORDERED: carvediloL 6.25 MG TAB PO ONE (09:15)
[2020-10-13] MEDS: SODIUM BICARBONATE TAB 650 MG TAB PO SCH ×2 (09:58→21:17)
[2020-10-13] MEDS: ENOXAPARIN 30 MG/0.3 ML SYRINGE SQ SCH (09:58)
[2020-10-13] MEDS: FAMOTIDINE 20 MG TAB PO SCH (09:58)
[2020-10-13] MEDS: FUROSEMIDE 10 MG/ML 10 ML VIAL IV SCH ×2 (09:58→21:18)
[2020-10-13] MEDS: SPIRONOLACTONE 25 MG TAB PO SCH (09:59)
[2020-10-13] MEDS: PARoxetine 10 MG TAB PO SCH (09:59)
[2020-10-13] MEDS ORDERED: BUTALB/APAP/CAFF 50-325-40MG TAB PO PRN (10:06)
--- NOTE | 2020-10-13 10:06 | P.PN ---
Subjective Progress Note Date: 10/13/20 Patient was seen for a follow-up. Patient initially seen by Dr. Eliud Matos. Please refer to his note for details. Patient's chart reviewed. Patient is a 30-year-old female with history of histiocytosis X, came with persistent headache, hypertension, COPD and uncontrolled hypertension. Patient has been complaining of pain in the left eye/orbital region. She does have history of chronic migraines. Patient was treated with clevidipine IV, which now has been discontinued. Her blood pressure is under control but she still has headache, 12/12. She states it is like her usual migraine. She does have some blurred vision in the left eye. Denies nausea vomiting at this time although sometimes gets it. Sometimes she feels an ice pick stabbing headache. She claims of light and noise sensitivity. Patient states that Dilaudid helps her headache and left arm pain. Also asking for Tylenol No. 3, for left arm pain. Her left arm IV site was infiltrated and now complains of pain in it. The left arm pain is not related to headache. Objective - Vital Signs Vital signs: Vital Signs Temp 97.6 F 10/13/20 04:00 Pulse 100 10/13/20 07:00 Resp 15 10/13/20 07:00 BP 138/103 10/13/20 07:00 Pulse Ox 95 10/13/20 07:00 Intake & Output 10/12/20 10/13/20 10/13/20 18:59 06:59 18:59 Intake Total 1782.367 321.5 44.167 Output Total 1700 1000 850 Balance 82.367 -678.5 -805.833 Weight 49.895 kg 54 kg Intake: Intake, IV Titration 462.367 321.5 44.167 Amount Clevidipine Butyrate 25 112.367 311.5 44.167 mg In Empty Bag 1 bag @ 1 MG/HR 2 mls/hr IV .Q24H [facility] Rx#:[id number] Levofloxacin 750Mg-D5w 150 Pmx 750 mg In Dextrose/ Water 1 150ml.bag @ 100 mls/hr IVPB ONCE STA Rx#: [id number] Sodium Chloride 0.9% 1, 200 10 000 ml @ 100 mls/hr IV . Q10H [facility] Rx#:[id number] Oral 1320 Output: Urine 1700 1000 850 Other: Voiding Method Toilet Toilet # Voids 1 1 - Exam Patient's mental status, speech and language functions are normal. Cranial nerves are normal. Muscle strength normal. Detailed testing deferred. - Labs CBC & Chem 7: 10/14/20 03:17 10/15/20 02:57 Labs: Abnormal Lab Results - Last 24 Hours (Table) 10/12/20 10/12/20 10/12/20 Range/Units 08:32 09:37 12:00 RBC (3.80-5.40) m/uL Hgb (11.4-16.0) gm/dL Hct (34.0-46.0) % RDW (11.5-15.5) % Carbon Dioxide (22-30) mmol/L BUN (7-17) mg/dL Creatinine (0.52-1.04) mg/dL Glucose (74-99) mg/dL POC Glucose (mg/dL) 129 H (75-99) mg/dL Phosphorus (2.5-4.5) mg/dL ALT (4-34) U/L Alkaline Phosphatase (38-126) U/L Troponin I 0.150 H* 0.137 H* (0.000-0.034) ng/mL Total Protein (6.3-8.2) g/dL Urine Blood (Negative) Urine Bacteria (None) /hpf Hyaline Casts (0-2) /lpf 10/12/20 10/13/20 10/13/20 Range/Units 12:59 03:21 03:21 RBC 3.52 L (3.80-5.40) m/uL Hgb 10.7 L (11.4-16.0) gm/dL Hct 32.5 L (34.0-46.0) % RDW 15.6 H (11.5-15.5) % Carbon Dioxide 21 L (22-30) mmol/L BUN 52 H (7-17) mg/dL Creatinine 2.86 H (0.52-1.04) mg/dL Glucose 108 H (74-99) mg/dL POC Glucose (mg/dL) (75-99) mg/dL Phosphorus 4.6 H (2.5-4.5) mg/dL ALT 35 H (4-34) U/L Alkaline Phosphatase 147 H (38-126) U/L Troponin I (0.000-0.034) ng/mL Total Protein 6.1 L (6.3-8.2) g/dL Urine Blood Moderate H (Negative) Urine Bacteria Occasional H (None) /hpf Hyaline Casts 5 H (0-2) /lpf Assessment and Plan Assessment: * Patient's history of chronic migraines, has presented with pain in the left orbital region, which she claims is like her usual migraine, but has some blurred vision. Probable related to uncontrolled hypertension (presented with blood pressure of 211/137). Stated her blood pressure has been uncontrolled since 2019. She also has component of migraine. * History of reported seizure (discharge according to patient at [facility] with [facility]TC seizure) but she does recall having seizure and denies her being discharged with seizure medications. 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 Never did any IV drugs. Plan: * CT of the head without contrast is normal. * Trial of Fioricet as needed. * Patient has received compazine and Toradol. * Patient has declined trial of Topamax, Depakote, or Elavil. She may be a candidate for Emgaity as outpatient. * Keppra would not be ideal for this patient because of her mood disorder. I'm not sure if patient did actually have seizures or was it would withdraw se izures due to alcohol use or medication use since she was on Ativan. * Notified the patient that upon discharge she needs to follow-up with a neurologist within 1-2 weeks. * Nephrology is on board. * Defer the rest of the medical management to the ICU team and primary team. * The patient was counseled on nicotine cessation and the continuation of polydrug cessation. * Patient was notified that per [facility] that she cannot drive for 6 month until seizure free, to avoid any heights, using heavy machinery or swimming unassisted (unsure when last seizure was).
[2020-10-13 10:51] VITALS: BMI 21.0
[2020-10-13 11:02] LABS: Amphetamine Screen,Urine Not Detected (NotDetected); Barbiturate Screen,Urine Not Detected (NotDetected); Benzodiazepines Screen,Urine Detected (NotDetected); Cocaine Screen,Urine Not Detected (NotDetected); Methadone Screen, Urine Not Detected (NotDetected); Opiate Screen,Urine Detected (NotDetected); Oxycodone Screen, Urine Not Detected (NotDetected); Phencyclidine Screen,Urine Not Detected (NotDetected); Tricyclic Antidepressant,Urine Not Detected (NotDetected); Urn Cannabinoid Scrn Not Detected (NotDetected)
--- NOTE | 2020-10-13 12:12 | P.PN ---
Subjective This is a 30-year-old woman with medical history of seizure, histocytosis X, hypertension, chronic kidney disease was on hemodialysis June 2020, congestive heart failure, diabetes insipidus, uncontrolled hypertension, hypopituitarism, diabetes, anxiety, nicotine use and history of cocaine use, marijuana use. Cardiology is consulted for congestive heart failure and hypertension. Patient was transferred to [facility] from [facility] for increased shortness of breath, acute pulmonary edema, acute hypertensive emergency. On admission patient's blood pressure was 211/137, she was placed on a non-rebreather. Patient was admitted to the ICU. Patient was started on Cleviprex drip, IV Hydralazine PRN, PO Coreg, IV Lasix. Nephrology and Pulmonary was consulted. Neurology was consulted for persistant headaches. Patient's home medications include Zestril 25 mg twice a day when necessary, spironolactone 50 mg daily, prazosin 2 mg daily, carvedilol 25 mg twice a day Subjective the brain revealed no acute intracranial abnormality. EKG- sinus rhythm, heart rate 92, T wave inversions in leads I and aVL and V6, LVH. 10/13/2020: Patient seen and examined at bedside, no acute distress. She is lying comfortably in bed. She continues to have a headache. Blood pressure 138/103, heart rate 100, afebrile, maintaining oxygen saturations 95% on room air. Patient currently maintained on Cleviprex drip 13 mg/hr, carvedilol 6.25 mg twice a day, Lasix 80 mg twice a day, hydralazine 10 mg IV when necessary, spironolactone 50 mg daily. Laboratory reviewed WBC 8.6, hemoglobin 10.7, platelets 234, sodium 137, potassium 3.5, BUN 52, serum creatine 2.8, magnesium 2.1, urine tox positive for opiates and benzos. Troponin 0.13, 0.15, 0.13. ProBNP 31,900. Blood cultures- preliminary results- negative to date GENERAL: Well-appearing, well-nourished and in no acute distress. NECK: Supple without JVD or thyromegaly. LUNGS: Breath sounds clear to auscultation bilaterally. Respiration equal and unlabored. No wheezes, rales or rhonchi. HEART: Regular rate and rhythm. Systolic murmur EXTREMITIES: Normal range of motion, no edema. No clubbing or cyanosis. Peripheral pulses intact. ASSESSMENT Elevated troponin, not consistent with acute coronary syndrome. Congestive heart failure- ProBNP 31,900 Chronic kidney disease, unknown baseline renal function. Hypertensive emergency Metabolic acidosis Acute pulmonary edema History of seizure disorder History of cocaine and marijuana use History of histiocytosis X Chronic nicotine dependence PLAN We will increase patient's Carvediolol to 12.5mg BID Stop Cleviprex drip Monitor patient's BP, potentially can add amlodipine IV Diuretics per pulmonary Echocardiogram- pending, will review results Further recommendations based on critical course. Nurse Practitioner note has been reviewed, I agree with a documented findings and plan of care. Patient was seen and examined. Objective - Vital Signs Vital signs: Vital Signs Temp 97.6 F 10/13/20 04:00 Pulse 100 10/13/20 07:00 Resp 15 10/13/20 07:00 BP 138/103 10/13/20 07:00 Pulse Ox 95 10/13/20 07:00 Intake & Output 10/12/20 10/13/20 10/13/20 18:59 06:59 18:59 Intake Total 1782.367 321.5 44.167 Output Total 1700 1000 850 Balance 82.367 -678.5 -805.833 Weight 49.895 kg 54 kg Intake: Intake, IV Titration 462.367 321.5 44.167 Amount Clevidipine Butyrate 25 112.367 311.5 44.167 mg In Empty Bag 1 bag @ 1 MG/HR 2 mls/hr IV .Q24H [facility] Rx#:[id number] Levofloxacin 750Mg-D5w 150 Pmx 750 mg In Dextrose/ Water 1 150ml.bag @ 100 mls/hr IVPB ONCE STA Rx#: [id number] Sodium Chloride 0.9% 1, 200 10 000 ml @ 100 mls/hr IV . Q10H [facility] Rx#:[id number] Oral 1320 Output: Urine 1700 1000 850 Other: Voiding Method Toilet Toilet # Voids 1 1 - Labs CBC & Chem 7: 10/13/20 03:21 10/13/20 03:21 Labs: Abnormal Lab Results - Last 24 Hours (Table) 07/11/21 07/11/21 07/11/21 Range/Units 08:32 09:37 12:00 RBC (3.80-5.40) m/uL Hgb (11.4-16.0) gm/dL Hct (34.0-46.0) % RDW (11.5-15.5) % Carbon Dioxide (22-30) mmol/L BUN (7-17) mg/dL Creatinine (0.52-1.04) mg/dL Glucose (74-99) mg/dL POC Glucose (mg/dL) 129 H (75-99) mg/dL Phosphorus (2.5-4.5) mg/dL ALT (4-34) U/L Alkaline Phosphatase (38-126) U/L Troponin I 0.150 H* 0.137 H* (0.000-0.034) ng/mL Total Protein (6.3-8.2) g/dL Urine Blood (Negative) Urine Bacteria (None) /hpf Hyaline Casts (0-2) /lpf 10/12/20 10/13/20 10/13/20 Range/Units 12:59 03:21 03:21 RBC 3.52 L (3.80-5.40) m/uL Hgb 10.7 L (11.4-16.0) gm/dL Hct 32.5 L (34.0-46.0) % RDW 15.6 H (11.5-15.5) % Carbon Dioxide 21 L (22-30) mmol/L BUN 52 H (7-17) mg/dL Creatinine 2.86 H (0.52-1.04) mg/dL Glucose 108 H (74-99) mg/dL POC Glucose (mg/dL) (75-99) mg/dL Phosphorus 4.6 H (2.5-4.5) mg/dL ALT 35 H (4-34) U/L Alkaline Phosphatase 147 H (38-126) U/L Troponin I (0.000-0.034) ng/mL Total Protein 6.1 L (6.3-8.2) g/dL Urine Blood Moderate H (Negative) Urine Bacteria Occasional H (None) /hpf Hyaline Casts 5 H (0-2) /lpf
[2020-10-13] MEDS ORDERED: POTASSIUM CHLORIDE ER 20 MEQ TAB.ER PO STA (12:16)
--- NOTE | 2020-10-13 12:41 | XR ---
EXAMINATION TYPE: XR chest 1V portable DATE OF EXAM: 10/13/2020 CLINICAL HISTORY: pneumonia. TECHNIQUE: Portable frontal view of the chest. COMPARISON: 10/12/2020 FINDINGS: Right internal jugular hemodialysis catheter with distal tip over the cavoatrial junction. The cardi omediastinal silhouette is enlarged. Pulmonary vasculature is normal. There is significantly improved aeration of the bilateral lungs versus 10/12/2020. No pleural effusion. No pneumothorax seen. No acut e displaced osseous fracture. IMPRESSION: Significantly improved aeration of the bilateral lungs versus 10/12/2020.
--- NOTE | 2020-10-13 13:52 | P.PN ---
Subjective Progress Note Date: 10/13/20 Principal diagnosis: Hypertensive emergency and acute pulmonary edema secondary to hypertensive emergency 30-year-old female patient who comes in to our hospital was 11 increased shortness of breath, acute pulmonary edema, acute hypertensive emergency. She has a very complex and complicated history. She has received her care through [facility] in [place] and [facility]. 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 Nevertheless, I do not see that she is on any supplements for now. She states that she was on hormone supplements in the past and this was discontinued after her most recent . She is also known to have hypertension, chronic kidney disease, congestion heart failure. The patient came in yesterday to the emergency department having increased shortness of breath. She was briefly placed on BiPAP. Her chest x-ray was consistent with pulmonary edema. COVID-19 testing was negative. Her blood pressure was as high as 211/137. She was started on Celebrex drip which is currently running at 4 mg an hour. Her blood pressures under better control. She was also given Levaquin. Currently she has a Thakkar catheter in place which is producing adequate amount of urine output. She also has a permacath in her right subclavian. She apparently was on hemodialysis at [facility] and she has received hemodialysis since June 2020. As such, the catheter has been placed and has been kept in place. No angina. No palpitation. Occasional sputum production. She has history of smoking. 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 She is smoking marijuana. Initially she went to [facility] and she signed out AMA, I think there was an issue with her pain medication which she wanted more pain medications to be given and she signed herself out. She is currently resting comfortably in bed. She wants a Thakkar catheter to be taken out. In terms of her blood work, her white cell count is at 17.1. Hemoglobin is at 11.4. Normal coagulation profile. Creatinine is 2.5. Lactic acid level is at 0.5. Sodium is at 138. ProBNP level is 31,900. Troponins of 0.137. Liver function tests are within normal limits. The patient's EKG showed a normal sinus rhythm. Left ventricular hypertrophy pattern has been seen related to chronic hypertension. Patient was reevaluated today on 10/13/2020, patient is in the ICU, she is on room air, doing well, asymptomatic except for pain. Remains on Lasix at 80 mg every 12 hours, blood pressure seems to be better controlled, she was on clevidipine was discontinued this morning, she is now mostly on oral medications. Her echocardiogram showed good LV function. Patient is feeling much better overall, and she is not requiring any oxygen. Chest x-ray is showing significant improvement in aeration of both lungs. CBC is relatively normal electrolytes are normal BUN is 52 creatinine 2.86. Objective - Vital Signs Vital signs: Vital Signs Temp 98.5 F 10/13/20 08:00 Pulse 92 10/13/20 12:00 Resp 11 L 10/13/20 12:00 BP 136/98 10/13/20 12:00 Pulse Ox 98 10/13/20 12:00 Intake & Output 10/12/20 10/13/20 10/13/20 18:59 06:59 18:59 Intake Total 1782.367 321.5 66.467 Output Total 1700 1000 1850 Balance 82.367 -678.5 -1783.533 Weight 49.895 kg 54 kg 54 kg Intake: Intake, IV Titration 462.367 321.5 66.467 Amount Clevidipine Butyrate 25 112.367 311.5 66.467 mg In Empty Bag 1 bag @ 1 MG/HR 2 mls/hr IV .Q24H [facility] Rx#:[id number] Levofloxacin 750Mg-D5w 150 Pmx 750 mg In Dextrose/ Water 1 150ml.bag @ 100 mls/hr IVPB ONCE STA Rx#: [id number] Sodium Chloride 0.9% 1, 200 10 000 ml @ 100 mls/hr IV . Q10H [facility] Rx#:[id number] Oral 1320 Output: Urine 1700 1000 1850 Other: Voiding Method Toilet Toilet # Voids 1 1 - Exam Physical Exam revealed 30-year-old white female in no distress. Head: Atraumatic, normocephalic. HEENT:[Neck is supple.] [No neck masses.] [No thyromegaly.] [No JVD.] Chest: [Clear throughout, no crackles, no rhonchi, no wheezes.] Cardiac Exam: [Normal S1 and S2, no S3 gallop, no murmur.] Abdomen: [Soft, nontender, no megaly, no rebound, no guarding, normal bowel sounds.] Extremities: [No clubbing, no edema, no cyanosis.] Neurological Exam: [No focal neurologic deficit.] Alert and oriented 3. Psychiatric: Normal mood affect and normal mental status examination. Skin: No rashes. - Labs CBC & Chem 7: 10/13/20 03:21 10/13/20 03:21 Labs: Abnormal Lab Results - Last 24 Hours (Table) 10/13/20 10/13/20 10/13/20 Range/Units 03: 03:21 10:19 RBC 3.52 L (3.80-5.40) m/uL Hgb 10.7 L (11.4-16.0) gm/dL Hct 32.5 L (34.0-46.0) % RDW 15.6 H (11.5-15.5) % Carbon Dioxide 21 L (22-30) mmol/L BUN 52 H (7-17) mg/dL Creatinine 2.86 H (0.52-1.04) mg/dL Glucose 108 H (74-99) mg/dL Phosphorus 4.6 H (2.5-4.5) mg/dL ALT 35 H (4-34) U/L Alkaline Phosphatase 147 H (38-126) U/L Total Protein 6.1 L (6.3-8.2) g/dL Urine Opiates Screen Detected H (NotDetected) U Benzodiazepines Scrn Detected H (NotDetected) Microbiology - Last 24 Hours (Table) 10/12/20 07:52 Blood Culture - Preliminary Blood No Growth after 24 hours 10/12/20 07:58 Blood Culture - Preliminary Blood No Growth after 24 hours Assessment and Plan Assessment: Impression: Acute hypertensive emergency Acute pulmonary edema secondary to above Chronic kidney disease History of histiocytosis X with diabetes insipidus and pituitary insufficiency History of seizure disorder Chronic pain syndrome Tobacco dependence syndrome Recommendation: Continue present medications Continue to control blood pressure with oral meds. Discontinue Cleviprex. Cut down the Lasix dose possibly to 80 mg daily instead of twice a day. As the chest x-ray showed significant improvement. Nephrology to continue to follow regarding her chronic kidney disease. We'll continue to follow. Could transfer patient out of the ICU to a regular medical floor. Time with Patient: Less than 30
[2020-10-13] MEDS: NICOTINE POLACRILEX 2 MG GUM BUCCAL PRN ×2 (16:24→21:17)
--- NOTE | 2020-10-13 17:04 | PN ---
PROGRESS NOTE Patient is seen for followup for acute kidney injury. Her serum creatinine is slightly worse today. It is at 2.8 from 2.59 yesterday. The patient is maintained on IV Lasix 80 mg IV q.12 hours. She has a history of acute kidney injury with recent dialysis dependent renal failure. The patient has had good urine output. A 24 hour output at 2.7 L. Overall, she states she is feeling better. Blood pressure is not low. The patient was started on IV Lasix and her chest x-ray has improved significantly with diuresis. On examination, patient is awake, comfortable, not in any acute distress. Blood pressure 144/103, heart rate 95 per minute, she is afebrile. Examination of the heart S1, S2. Examination of lungs, decreased breath sounds at the bases. Abdomen is soft, nontender. Examination lower extremities shows trace edema. OUTPATIENT SCHEDULER exam grossly intact. LAB: Show hemoglobin 10.7 g/dL, sodium 137, potassium 3.5, BUN 52, serum creatinine 2.86. UA is quite benign with moderate blood, otherwise, no cells or protein is noted. ASSESSMENT: 1. Acute kidney injury, currently nonoliguric with the underlying chronic kidney disease. The patient's previous creatinine not known. The patient is has been volume overloaded and is currently being diuresed. Her chest x-ray is significantly improved post diuresis. I will continue with the IV Lasix and I will hold off on removal of the PermCath at this point. 2. Status post acute kidney injury with hemodialysis dependent renal failure. Patient came off dialysis in June of 2020 with some recovery of renal function. She follows with a brewery technician in [place]. 3. Metabolic acidosis associated with chronic kidney disease. 4. Hypertensive emergency status post Cleviprex, currently able to take oral medications. 5. Volume overload, improved. 6. Hyperphosphatemia associated with chronic kidney disease. PLAN: Continue with IV Lasix. Continue off IV fluids. Hold off on removal of the PermCath at this point and repeat labs in a.m. Avoid nephrotoxic agents. MMODL / IJN: [id number] /
[2020-10-13] MEDS: carvediloL 12.5 MG TAB PO SCH (18:19)
--- NOTE | 2020-10-13 18:43 | ECHOF ---
Referral Reason:Heart Failure MEASUREMENTS -------- HEIGHT: 160.0 cm WEIGHT: 54.0 kg BP: 131/92 IVSd: 1.7 cm (0.6 - 1.1) LVIDd: 4.0 cm (3.9 - 5.3) LVPWd: 1.5 cm (0.6 - 1.1) EDV(Teich): 71 ml IVSs: 2.0 cm LVIDs: 3.2 cm LVPWs: 2.3 cm %IVS Thck: 17 % ESV(Teich): 41 ml EF(Teich): 42 % %FS: 21 % SV(Teich): 30 ml LA Diam: 4.2 cm (2.7 - 3.8) RVIDd: 2.9 cm (< 3.3) LALs A4C: 5.4 cm LAAs A4C: 19.5 cm LAESV A-L A4C: 59 ml LAESV MOD A4C: 57 ml LALs A2C: 5.0 cm LAAs A2C: 14.1 cm LAESV A-L A2C: 34 ml LAESV MOD A2C: 34 ml LAESV(A-L): 47 ml LAESV Index (A-L): 30.34 ml/m HR_2Ch_Q: 94 bpm HR_4Ch_Q: 93 bpm LVVED_2Ch_Q: 119 ml LVVED_4Ch_Q: 144 ml LVVED_BiP_Q: 130 ml LVVES_2Ch_Q: 55 ml LVVES_4Ch_Q: 81 ml LVVES_BiP_Q: 65 ml LVEF_2Ch_Q: 54 % LVEF_4Ch_Q: 44 % LVEF_BiP_Q: 50 % LVSV_2Ch_Q: 64 ml LVSV_4Ch_Q: 64 ml LVSV_BiP_Q: 66 ml LVCO_2Ch_Q: 6.0 l/min LVCO_4Ch_Q: 5.9 l/min LVCO_BiP_Q: 6.1 l/min LVLs_2Ch_Q: 7.9 cm LVLs_4Ch_Q: 7.0 cm LVLd_2Ch_Q: 9.0 cm LVLd_4Ch_Q: 8.0 cm Ao Diam: 3.2 cm (2.0 - 3.7) AV Cusp: 2.6 cm (1.5 - 2.6) EPSS: 1.0 cm MV E Tiago: 1.14 m/s MV DecT: 166 ms MV Dec [place]: 6.8 m/s MV A Tiago: 0.67 m/s MV E/A Ratio: 1.70 MV PHT: 48 ms AV Vmax: 1.66 m/s AV maxP.97 mmHg AR Vmax: 3.56 m/s AR maxP.79 mmHg AR PHT: 370 ms AR Dec Time: 1276 ms AR Dec [place]: 2.8 m/s TR Vmax: 3.13 m/s TR maxP.10 mmHg RAP: 5.00 mmHg RVSP: 44.10 mmHg MV EF SLOPE: 40.94 mm/s (70 - 150) MV EXCURSION: 12.75 mm (> 18.000) FINDINGS -------- Sinus rhythm. This was a technically good study. The left ventricular size is normal. There is severe concentric left ventricular hypertrophy. Ove rall left ventricular systolic function is low-normal with, an EF between 50 - 55 %. The right ventricle is normal in size. LA is midly dilated 29-33ml/m2. The right atrium is normal in size. Interatrial and interventricular septum intact. There is mild aortic regurgitation. Mild mitral regurgitation is present. Mild tricuspid regurgitation present. There is mild pulmonary hypertension. The right ventricular systolic pressure, as measured by Doppler, is 44.10mmHg. Trace/mild (physiologic) pulmonic regurgitation. CATHETER IN RA The aortic root size is normal. Normal inferior vena cava with normal inspiratory collapse consistent with estimated right atrial pre ssure of 5 mmHg. There is a small, generalized pericardial effusion present. CONCLUSIONS -------- 1. The left ventricular size is normal. 2. There is severe concentric left ventricular hypertrophy. 3. Overall left ventricular systolic function is low-normal with, an EF between 50 - 55 %. 4. LA is midly dilated 29-33ml/m2. 5. There is mild aortic regurgitation. 6. Mild mitral regurgitation is present. 7. Mild tricuspid regurgitation present. 8. There is mild pulmonary hypertension. 9. The right ventricular systolic pressure, as measured by Doppler, is 44.10mmHg. 10. Trace/mild (physiologic) pulmonic regurgitation. 11. Mass in RA OR PORT WIRE 12. There is a small, generalized pericardial effusion present. SALES SECRETARY: Kayla Viramontes RDCS
--- NOTE | 2020-10-13 20:58 | P.PN ---
Progress Note - Text Progress Note Date: 10/13/20 Chief Complaint: Short of breath History of presenting complaint: This is a 30-year-old patient who follows with an oncologist . 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 It does end wall several of her bones. Patient had presented to:[facility] in [place]. She was having accelerated hypertension. She says she left from there AMA because she was told she was a drug seeker was asking for Ativan. She then yesterday presented to [facility]. For that she was transferred here. She says she's been clean off methamphetamine, Stuart, occasionally taking fentanyl for last 15 months. Does smoke half a pack a day. Has a cough. Slight sputum. Denies any fever and chills. Appetite is fair. Denies any obvious chest pain. Patient is tearful as she say she is missing the children. No obvious edema. Patient's the ICU. On IV Cleviprex. Initially she was in a BiPAP and based on nasal cannula. Patient had received hemodialysis through recently. Patient admitted with hypertensive urgency, acute and chronic congestive heart failure exacerbation, possibly acute on chronic kidney disease. Patient was started on IV Lasix. Cleviprex drip. Uncontrolled anxiety. Started on Paxil October 13: ICU: Sitting up in bed. Oral intake better. Breathing is better. Blood pressure better controlled. Taken off the Cleviprex drip. Remains on IV Lasix. Review of systems: Was done for constitutional, cardiovascular, GI, pulmonary. relevant finding as above Active Medications Acetaminophen (Acetaminophen Tab 325 Mg Tab) 650 mg PO Q6HR PRN PRN Reason: Fever and/ or Pain Last Admin: 10/12/20 13:58 Dose: 650 mg Documented by: Acetaminophen/Butalbital/Caffeine (Butalb/Apap/Caff 50-325-40mg Tab) 1 each PO Q4HR PRN PRN Reason: Headache Acetaminophen/Codeine Phosphate (Acetaminophen-Codeine 300-30mg Tab) 1 each PO Q4HR PRN PRN Reason: Pain Last Admin: 10/13/20 18:18 Dose: 1 each Documented by: Albuterol Sulfate (Albuterol Nebulized 2.5 Mg/3 Ml) 5 mg INHALATION RT-QID [facility] Last Admin: 10/13/20 20:02 Dose: Not Given Documented by: Carvedilol (Carvedilol 12.5 Mg Tab) 12.5 mg PO BID-W/MEALS [facility] Last Admin: 10/13/20 18:19 Dose: 12.5 mg Documented by: Diphenhydramine HCl (Diphenhydramine 50 Mg/Ml 1 Ml Vial) 25 mg IVP Q6HR PRN PRN Reason: Allergy Symptoms Enoxaparin Sodium (Enoxaparin 30 Mg/0.3 Ml Syringe) 30 mg SQ DAILY [facility] Last Admin: 10/13/20 09:58 Dose: 30 mg Documented by: Famotidine (Famotidine 20 Mg Tab) 20 mg PO DAILY [facility] Last Admin: 10/13/20 09:58 Dose: 20 mg Documented by: Furosemide (Furosemide 10 Mg/Ml 10 Ml Vial) 80 mg IV Q12HR [facility] Last Admin: 10/13/20 09:58 Dose: 80 mg Documented by: Hydralazine HCl (Hydralazine Hcl 20 Mg/Ml 1 Ml Vial) 10 mg IVP Q4HR PRN PRN Reason: Blood Pressure - High Last Admin: 10/12/20 22:06 Dose: 10 mg Documented by: Lorazepam (Lorazepam 2 Mg/Ml Inj) 2 mg IV Q4HR PRN PRN Reason: Anxiety Last Admin: 10/13/20 18:20 Dose: 2 mg Documented by: Miscellaneous Information (Pneumonia Protocol Utilized 1 Each [facility] [place] 1 each PO ONCE PRN PRN Reason: Per Protocol Naloxone HCl (Naloxone 0.4 Mg/Ml 1 Ml Vial) 0.2 mg IV Q2M PRN PRN Reason: Opioid Reversal Nicotine Polacrilex (Nicotine Polacrilex 2 Mg Gum) 2 mg BUCCAL Q2HR PRN PRN Reason: Nicotine Cravings Last Admin: 10/13/20 16:24 Dose: 2 mg Documented by: Ondansetron HCl (Ondansetron 4 Mg/2 Ml Vial) 4 mg IVP Q8HR PRN PRN Reason: Nausea And Vomiting Paroxetine HCl (Paroxetine 10 Mg Tab) 10 mg PO DAILY [facility] Last Admin: 10/13/20 09:59 Dose: 10 mg Documented by: Sevelamer Carbonate (Sevelamer 800 Mg Tab) 800 mg PO TID-W/MEALS [facility] Last Admin: 10/13/20 18:17 Dose: 800 mg Documented by: Sodium Bicarbonate (Sodium Bicarbonate Tab 650 Mg Tab) 650 mg PO BID [facility] Last Admin: 10/13/20 09:58 Dose: 650 mg Documented by: Spironolactone (Spironolactone 25 Mg Tab) 50 mg PO DAILY [facility] Last Admin: 10/13/20 09:59 Dose: 50 mg Documented by: Zolpidem Tartrate (Zolpidem 5 Mg Tab) 2.5 mg PO HS PRN PRN Reason: Insomnia Past medical history to include: Heart failure, hypertension, diabetes insipidus, histocytosis X, chronic kidney disease, hypertension, anxiety Social history: Lives with her . Smokes half a pack a day. Also does smoke marijuana. Says has been clean for last 15 months. Methamphetamine and Stuart. It also occasionally do fentanyl. Family history: Reviewed, noncontributory to presentation Physical examination: VITAL SIGNS: Afebrile, 92, 13, 129/88, 96% room air GENERAL: Sitting up in bed, more comfortable EYES: Pupils equal. Conjunctiva normal. HEENT: External appearance of nose and ears normal, oral cavity grossly normal. NECK: JVD not raised; masses not palpable. HEART: First and second heart sounds are normal; no edema. LUNGS: Respiratory rate normal, decreased breath sounds. ABDOMEN: Soft, nontender, liver spleen not palpable, no masses palpable. PSYCH: [Alert and oriented x3; mood and affect anxious. INVESTIGATIONS, reviewed in the clinical context: October 13: WBC 8.7 hemoglobin 10.7 platelets 234 potassium 3.5. 52 creatinine 2.86 Urine drug screen positive for opiates, benzodiazepine Renal ultrasound: No hydronephrosis. Corticomedullary different sensation is maintained. Cortical echogenicity is increased. WBC 17.1 hemoglobin 11.4 platelets 290 potassium 4.2 BUN 48 creatinine 2.59 AST 63 ALT 55 Troponin I 0.137, 0.150 CRP 0.8 ProBNP 94516 EKG tracing personally reviewed by me-normal sinus rhythm, LVH with some ST segment changes Chest x-ray film personally reviewed by me-questionable infiltrate Assessment and plan: -Hypertensive emergency-better controlled IVCleviprex drip-discontinued. Coreg 12.5 mg by mouth twice a day -Acute congestive heart failure exacerbation from hypertensive heart disease- improving IV Lasix 80 mg every 12 -Acute on chronic kidney disease. Baseline creatinine is not known. . Strict I's and O's. . Some worsening -Chronic nicotine dependence, patient cigarette smoker Nicotine patch -Anxiety not otherwise specified Paxil 10 mg a day. Ativan when necessary -Histocytosis X -Acute hypoxic respiratory failure from CHF.-Improved Initially on a BiPAP. Currently nasal cannula -Chronic migraine with acute exacerbation from uncontrolled blood pressure Neurology consulted. 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 Sodium bicarbonate by mouth -[Patient's claim she has history of diabetes insipidus at be to treat insufficiency. Currently no evidence of the same] Patient's taken off the Cleviprex should. Remains on IV Lasix. Coreg 12.5 mg by mouth twice a day. Fioricet as per neurology.
[2020-10-13] MEDS: hydrALAZINE HCL 20 MG/ML 1 ML VIAL IVP PRN (21:17)
[2020-10-14] MEDS: Acetaminophen-Codeine 300-30mg TAB PO PRN ×4 (00:37→20:08)
[2020-10-14] MEDS: LORazepam 2 MG/ML INJ IV PRN ×2 (00:37→06:41)
[2020-10-14] MEDS: ACETAMINOPHEN TAB 325 MG TAB PO PRN (02:23)
[2020-10-14] MEDS: hydrALAZINE HCL 20 MG/ML 1 ML VIAL IVP PRN ×2 (02:23→16:05)
[2020-10-14 04:00] LABS: Basophils # (A) 0.1 k/uL (0-0.2); Basophils % (A) 1 %; Eosinophils # (A) 0.7 k/uL (0-0.7); Eosinophils % (A) 9 %; HCT 29.5 % (34.0-46.0); HGB 10.2 gm/dL (11.4-16.0); Lymphocytes # (A) 1.4 k/uL (1.0-4.8); Lymphocytes % (A) 17 %; MCH 31.9 pg (25.0-35.0); MCHC 34.6 g/dL (31.0-37.0); Mean Platelet Volume 7.6; Monocytes # (A) 0.4 k/uL (0-1.0); Monocytes % (A) 5 %; Neutrophils # (A) 5.7 k/uL (1.3-7.7); Neutrophils % (A) 68 %; Platelet Count 235 k/uL (150-450); RDW 15.2 % (11.5-15.5); WBC 8.5 k/uL (3.8-10.6)
[2020-10-14 04:21] LABS: Calcium 9.1 mg/dL (8.4-10.2)
[2020-10-14] MEDS: carvediloL 12.5 MG TAB PO SCH ×2 (06:41→20:08)
[2020-10-14] MEDS: SEVELAMER 800 MG TAB PO SCH ×3 (06:45→20:08)
[2020-10-14] MEDS: ALBUTEROL NEBULIZED 2.5 MG/3 ML INHALATION SCH ×4 (07:31→20:30)
[2020-10-14] MEDS ORDERED: carvediloL 12.5 MG TAB PO ONE (08:45)
[2020-10-14] MEDS: FAMOTIDINE 20 MG TAB PO SCH (09:02)
[2020-10-14] MEDS: amLODIPine 5 MG TAB PO SCH (09:02)
[2020-10-14] MEDS: SPIRONOLACTONE 25 MG TAB PO SCH (09:02)
[2020-10-14] MEDS: PARoxetine 10 MG TAB PO SCH (09:02)
[2020-10-14] MEDS: ENOXAPARIN 30 MG/0.3 ML SYRINGE SQ SCH (09:02)
[2020-10-14] MEDS: SODIUM BICARBONATE TAB 650 MG TAB PO SCH ×2 (09:02→22:22)
--- NOTE | 2020-10-14 11:06 | US ---
EXAMINATION TYPE: US renal artery duplex complete DATE OF EXAM: 10/14/2020 COMPARISON: Renal ultrasound 10/12/2020 CLINICAL HISTORY: rule out renal artery stenosis . MEASUREMENTS: RENAL SIZE: Rt Kidney: 10.7 x 3.8 x 4.9 cm Lt Kidney: 10.4 x 4.8 x 4.5 cm RESISTANCE INDEX (normal 0.50-0.70) Right: 0.58 Left: 0.58 RA/AO RATIO (< 3.5 ) Right: 1.5 Left: 1.0 RA VELOCITY ( < 180 cm/s) Right: 102 Left: 72 Abdominal aorta unremarkable and normal in caliber. Renal arteries are patent bilaterally with no evidence of hemodynamically significant stenosis. There is increased cortical echogenicity of the bilateral kidneys. No evidence of hydronephrosis. IMPRESSION: 1. No evidence of renal artery stenosis bilaterally. 2. Echogenic kidneys may represent medical renal disease.
[2020-10-14] MEDS ORDERED: FUROSEMIDE 10 MG/ML 10 ML VIAL IV SCH (11:52)
--- NOTE | 2020-10-14 12:00 | P.PN ---
Subjective This is a 30-year-old woman with medical history of seizure, histocytosis X, hypertension, chronic kidney disease was on hemodialysis June 2020, congestive heart failure, diabetes insipidus, uncontrolled hypertension, hypopituitarism, diabetes, anxiety, nicotine use and history of cocaine use, marijuana use. Cardiology is consulted for congestive heart failure and hypertension. Patient was transferred to [facility] from [facility] for increased shortness of breath, acute pulmonary edema, acute hypertensive emergency. On admission patient's blood pressure was 211/137, she was placed on a non-rebreather. Patient was admitted to the ICU. Patient was started on Cleviprex drip, IV Hydralazine PRN, PO Coreg, IV Lasix. Nephrology and Pulmonary was consulted. Neurology was consulted for persistant headaches. Patient's home medications include Zestril 25 mg twice a day when necessary, spironolactone 50 mg daily, prazosin 2 mg daily, carvedilol 25 mg twice a day Subjective the brain revealed no acute intracranial abnormality. EKG- sinus rhythm, heart rate 92, T wave inversions in leads I and aVL and V6, LVH. 10/13/2020: Patient maintained on Cleviprex drip 13 mg/hr, carvedilol 6.25 mg twice a day, Lasix 80 mg twice a day, hydralazine 10 mg IV when necessary, spironolactone 50 mg daily. Cleviprex drip stopped. Troponin 0.13, 0.15, 0.13. ProBNP 31,900. Blood cultures- preliminary results- negative to date. Echocardiogram revealed an EF of 50-55%, mild aortic regurgitation, mild mitral regurgitation, tricuspid regurgitation, mild pulmonary hypertension RVSP 44 mmHg, RA mass in. Small generalized pericardial effusion 10/14/2020: Patient seen and examined at bedside, no acute distress. She is lying comf ortably in bed. She appears anxious, she wants to go home. She continues to have a slight headache. Blood pressure 171/117, heart rate 105, afebrile, maintaining saturations 96% on room air. Laboratory reviewed WBC 10.2, platelets 235, sodium 135, potassium 4.0, BUN 50, serum creatinine 2.6. GENERAL: Well-appearing, well-nourished and in no acute distress. NECK: Supple without JVD or thyromegaly. LUNGS: Breath sounds clear to auscultation bilaterally. Respiration equal and unlabored. No wheezes, rales or rhonchi. HEART: Regular rate and rhythm. Systolic murmur EXTREMITIES: Normal range of motion, no edema. No clubbing or cyanosis. Peripheral pulses intact. ASSESSMENT Elevated troponin, not consistent with acute coronary syndrome. Congestive heart failure- ProBNP 31,900 Chronic kidney disease, unknown baseline renal function. Hypertensive emergency Metabolic acidosis Acute pulmonary edema History of seizure disorder History of cocaine and marijuana use History of histiocytosis X Chronic nicotine dependence PLAN Will order Ultrasound to rule out renal artery stenosis We will increase patient's Carvediolol to 25mg BID Will start amlodipine 5mg Monitor patient's BP IV Diuretics per nephrology Nephrology and Pulmonary following, appreciate recs Further recommendations based on critical course. Nurse Practitioner note has been reviewed, I agree with a documented findings and plan of care. Patient was seen and examined. Objective - Vital Signs Vital signs: Vital Signs Temp 98.6 F 10/13/20 20:00 Pulse 99 10/14/20 02:00 Resp 16 10/14/20 02:00 BP 177/111 10/14/20 02:00 Pulse Ox 98 10/14/20 02:00 Intake & Output 10/13/20 10/14/20 10/14/20 18:59 06:59 18:59 Intake Total 266.467 Output Total 2750 600 Balance -2483.533 -600 Weight 54 kg Intake: Intake, IV Titration 66.467 Amount Clevidipine Butyrate 25 66.467 mg In Empty Bag 1 bag @ 1 MG/HR 2 mls/hr IV .Q24H [facility] Rx#:[id number] Oral 200 Output: Urine 2750 600 Other: Voiding Method Toilet Toilet - Labs CBC & Chem 7: 10/14/20 03:17 10/14/20 03:17 Labs: Abnormal Lab Results - Last 24 Hours (Table) 10/13/20 10/14/20 10/14/20 Range/Units 10:19 03:17 03:17 RBC 3.20 L (3.80-5.40) m/uL Hgb 10.2 L (11.4-16.0) gm/dL Hct 29.5 L (34.0-46.0) % Sodium 135 L (137-145) mmol/L Carbon Dioxide 21 L (22-30) mmol/L BUN 50 H (7-17) mg/dL Creatinine 2.63 H (0.52-1.04) mg/dL Glucose 105 H (74-99) mg/dL Urine Opiates Screen Detected H (NotDetected) U Benzodiazepines Scrn Detected H (NotDetected) Microbiology - Last 24 Hours (Table) 10/12/20 07:52 Blood Culture - Preliminary Blood No Growth after 24 hours 10/12/20 07:58 Blood Culture - Preliminary Blood No Growth after 24 hours
--- NOTE | 2020-10-14 12:21 | P.PN ---
Subjective Progress Note Date: 10/14/20 Principal diagnosis: Hypertensive emergency and acute pulmonary edema secondary to hypertensive emergency 30-year-old female patient who comes in to our hospital was 11 increased shortness of breath, acute pulmonary edema, acute hypertensive emergency. She has a very complex and complicated history. She has received her care through [facility] in [place] and [facility]. 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 Nevertheless, I do not see that she is on any supplements for now. She states that she was on hormone supplements in the past and this was discontinued after her most recent . She is also known to have hypertension, chronic kidney disease, congestion heart failure. The patient came in yesterday to the emergency department having increased shortness of breath. She was briefly placed on BiPAP. Her chest x-ray was consistent with pulmonary edema. COVID-19 testing was negative. Her blood pressure was as high as 211/137. She was started on Celebrex drip which is currently running at 4 mg an hour. Her blood pressures under better control. She was also given Levaquin. Currently she has a Thakkar catheter in place which is producing adequate amount of urine output. She also has a permacath in her right subclavian. She apparently was on hemodialysis at [facility] and she has received hemodialysis since June 2020. As such, the catheter has been placed and has been kept in place. No angina. No palpitation. Occasional sputum production. She has history of smoking. 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 She is smoking marijuana. Initially she went to [facility] and she signed out AMA, I think there was an issue with her pain medication which she wanted more pain medications to be given and she signed herself out. She is currently resting comfortably in bed. She wants a Thakkar catheter to be taken out. In terms of her blood work, her white cell count is at 17.1. Hemoglobin is at 11.4. Normal coagulation profile. Creatinine is 2.5. Lactic acid level is at 0.5. Sodium is at 138. ProBNP level is 31,900. Troponins of 0.137. Liver function tests are within normal limits. The patient's EKG showed a normal sinus rhythm. Left ventricular hypertrophy pattern has been seen related to chronic hypertension. Patient was reevaluated today on 10/13/2020, patient is in the ICU, she is on room air, doing well, asymptomatic except for pain. Remains on Lasix at 80 mg every 12 hours, blood pressure seems to be better controlled, she was on clevidipine was discontinued this morning, she is now mostly on oral medications. Her echocardiogram showed good LV function. Patient is feeling much better overall, and she is not requiring any oxygen. Chest x-ray is showing significant improvement in aeration of both lungs. CBC is relatively normal electrolytes are normal BUN is 52 creatinine 2.86. Reevaluated today on 10/14/2020, in the ICU, she is presently on room air, not in any distress, however her blood pressure remains high about 190 systolic and 131 diastolic, her oral medications including Coreg was increased and Norvasc was added by cardiology. Patient has no symptoms and I believe the patient could be transferred out of the ICU to a regular medical floor today. She is requiring significant amount of pain medications and sedation, however the admitting physician is addressing the narcotics and sedatives. From my perspective the patient could be transferred out of the ICU and will sign off and see the patient on when necessary basis. Objective - Vital Signs Vital signs: Vital Signs Temp 98 F 10/14/20 08:45 Pulse 105 H 10/14/20 08:45 Resp 22 10/14/20 08:45 BP 183/120 10/14/20 09:45 Pulse Ox 96 10/14/20 08:45 Intake & Output 10/13/20 10/14/20 10/14/20 18:59 06:59 18:59 Intake Total 266.467 Output Total 2750 600 Balance -2483.533 -600 Weight 54 kg Intake: Intake, IV Titration 66.467 Amount Clevidipine Butyrate 25 66.467 mg In Empty Bag 1 bag @ 1 MG/HR 2 mls/hr IV .Q24H [facility] Rx#:[id number] Oral 200 Output: Urine 2750 600 Other: Voiding Method Toilet Toilet - Exam Physical Exam revealed 30-year-old white female in no distress. On room air. Head: Atraumatic, normocephalic. HEENT:[Neck is supple.] [No neck masses.] [No thyromegaly.] [No JVD.] Chest: [Clear throughout, no crackles, no rhonchi, no wheezes.] Cardiac Exam: [Normal S1 and S2, no S3 gallop, no murmur.] Abdomen: [Soft, nontender, no megaly, no rebound, no guarding, normal bowel sounds.] Extremities: [No clubbing, no edema, no cyanosis.] Neurological Exam: [No focal neurologic deficit.] Alert and oriented 3. Psychiatric: Normal mood affect and normal mental status examination. Skin: No rashes. - Labs CBC & Chem 7: 10/14/20 03:17 10/14/20 03:17 Labs: Abnormal Lab Results - Last 24 Hours (Table) 10/14/20 10/14/20 Range/Units 03:17 03:17 RBC 3.20 L (3.80-5.40) m/uL Hgb 10.2 L (11.4-16.0) gm/dL Hct 29.5 L (34.0-46.0) % Sodium 135 L (137-145) mmol/L Carbon Dioxide 21 L (22-30) mmol/L BUN 50 H (7-17) mg/dL Creatinine 2.63 H (0.52-1.04) mg/dL Glucose 105 H (74-99) mg/dL Microbiology - Last 24 Hours (Table) 10/12/20 07:58 Blood Culture - Preliminary Blood No Growth after 48 hours 10/12/20 07:52 Blood Culture - Preliminary Blood No Growth after 48 hours Assessment and Plan Assessment: Impression: Acute hypertensive emergency Acute pulmonary edema secondary to above Chronic kidney disease History of histiocytosis X with diabetes insipidus and pituitary insufficiency History of seizure disorder Chronic pain syndrome Tobacco dependence syndrome Recommendation: Continue present medications, agree with increase Coreg and adding Norvasc. Continue to control blood pressure with oral meds. Transfer out of the ICU to a regular medical floor. Nephrology to continue to follow regarding her chronic kidney disease. Will sign off and see when necessary. Time with Patient: Less than 30
[2020-10-14] MEDS ORDERED: carvediloL 12.5 MG TAB PO STA (12:40)
[2020-10-14] MEDS: FUROSEMIDE 20 MG TAB PO SCH (12:51)
--- NOTE | 2020-10-14 13:01 | PN ---
PROGRESS NOTE Patient is seen for followup for acute kidney injury and chronic kidney disease. She has been recently diuresed with significant improvement in respiratory status. Blood pressure remains elevated. Patient has history of high anxiety and is requesting to be discharged. She states she has an appointment with a supervisor [employer] in December and she will not be seeing her previous supervisor [employer] who is out of [place] anymore. There is history of dialysis dependent acute kidney injury from January to June of 2020 and patient has been off dialysis since June of this year. Serum creatinine has been at about 2.5-2.8 mg/dL. Currently patient has had good urine output. I have advised her to remove her PermCath prior to discharge. However, she wants to leave and have the surgery done as outpatient. PHYSICAL EXAMINATION: On examination today, blood pressure 189/130, heart rate 105 per minute she is afebrile. Examination of the heart S1, S2. Examination of the lungs, bilateral breath sounds are heard. Abdomen is soft, nontender. Examination of lower extremities shows no evidence of edema. URGENT CARE exam grossly intact. LAB: Show sodium 135, potassium 4.0, chloride 102, CO2 is 21, BUN 50, creatinine 2.6, hemoglobin 10.2 g/dL. ASSESSMENT: 1. Acute kidney injury most likely ATN requiring dialysis from January of 2020 to June of 2020. The patient still has the IJ PermCath and I have advised her to get the PermCath removed prior to discharge. She wants to leave and states that she will have a sitter scheduled as outpatient. She is also advised to follow up with her supervisor [employer] as outpatient. 2. Volume overload, currently improved. 3. Hypertension partly volume sensitive as well as component of anxiety. Rule out secondary causes. Urine aldosterone level will be ordered. Continue with Aldactone. Continue with the Coreg at 25 mg b.i.d. and Norvasc. Dose can be increased to 10 mg daily on the calcium channel blockers. PLAN: Check renal aldosterone level. Continue with Lasix post discharge. Discontinue PermCath prior to discharge or follow up as outpatient with Surgery to have it removed and follow up with Nephrology closely as outpatient. MMODL / IJN: [id number] /
--- NOTE | 2020-10-14 14:34 | P.PN ---
Subjective Progress Note Date: 10/14/20 10/14/2020: Patient states the headache has resolved. Still complaining of pain in the left arm where she had previous IV site. Patient's blood pressure is very high, and patient believes that Ativan will help. 10/13/2020: Patient was seen for a follow-up. Patient initially seen by Dr. Eliud Matos. Please refer to his note for details. Patient is a 30-year-old female with history of histiocytosis X, came with persistent headache, hypertension, COPD and uncontrolled hypertension. Patient has been complaining of pain in the left eye/orbital region. She does have history of chronic migraines. Patient was treated with clevidipine IV, which now has been discontinued. Her blood pressure is under control but she still has headache, 9/10. She states it is like her usual migraine. She does have some blurred vision in the left eye. Denies nausea vomiting at this time although sometimes gets it. Sometimes she feels an ice pick stabbing headache. She claims of light and noise sensitivity. Patient states that Dilaudid helps her headache and left arm pain. Also asking for Tylenol No. 3, for left arm pain. Her left arm IV site was infiltrated and now complains of pain in it. The left arm pain is not related to headache. Objective - Vital Signs Vital signs: Vital Signs Temp 98.7 F 10/14/20 12:00 Pulse 82 10/14/20 12:00 Resp 22 10/14/20 12:00 BP 197/133 10/14/20 12:00 Pulse Ox 97 10/14/20 12:00 Intake & Output 10/13/20 10/14/20 10/14/20 18:59 06:59 18:59 Intake Total 266.467 Output Total 2750 600 Balance -2483.533 -600 Weight 54 kg Intake: Intake, IV Titration 66.467 Amount Clevidipine Butyrate 25 66.467 mg In Empty Bag 1 bag @ 1 MG/HR 2 mls/hr IV .Q24H [facility] Rx#:[id number] Oral 200 Output: Urine 2750 600 Other: Voiding Method Toilet Toilet - Exam Patient's mental status, speech and language functions are normal. Cranial nerves are normal. Muscle strength normal. Detailed testing deferred. Patient walking normally in the hallway. Balance is normal. - Labs CBC & Chem 7: 10/14/20 03:17 10/14/20 03:17 Labs: Abnormal Lab Results - Last 24 Hours (Table) 10/14/20 10/14/20 Range/Units 03:17 03:17 RBC 3.20 L (3.80-5.40) m/uL Hgb 10.2 L (11.4-16.0) gm/dL Hct 29.5 L (34.0-46.0) % Sodium 135 L (137-145) mmol/L Carbon Dioxide 21 L (22-30) mmol/L BUN 50 H (7-17) mg/dL Creatinine 2.63 H (0.52-1.04) mg/dL Glucose 105 H (74-99) mg/dL Microbiology - Last 24 Hours (Table) 10/12/20 07:58 Blood Culture - Preliminary Blood No Growth after 48 hours 10/12/20 07:52 Blood Culture - Preliminary Blood No Growth after 48 hours Assessment and Plan Assessment: * Patient's history of chronic migraines, has presented with pain in the left orbital region, which she claims is like her usual migraine, but has some blurred vision. Probable related to uncontrolled hypertension (presented with blood pressure of 211/137). Stated her blood pressure has been uncontrolled since 2019. She also has component of migraine. * History of reported seizure (discharge according to patient at [facility] with GTC seizure) but she does recall having seizure and denies her being discharged with seizure medications. 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 Never did any IV drugs. Plan: * Patient's headache has resolved. Continue Fioricet as needed. Patient still in the hospital because of uncontrolled blood pressure. IM/nephrology, critical care following. * CT of the head without contrast is normal. * Patient has received compazine and Toradol. * Patient has declined trial of Topamax, Depakote, or Elavil. She may be a candidate for Emgaity as outpatient. * Keppra would not be ideal for this patient because of her mood disorder. I'm not sure if patient did actually have seizures or was it would withdraw seizures due to alcohol use or medication use since she was on Ativan. * Notified the patient that upon discharge she needs to follow-up with a neurologist within 1-2 weeks. * Defer the rest of the medical management to the ICU team and primary team. * The patient was counseled on nicotine cessation and the continuation of polydrug cessation. * Patient was notified that per [place] DMV that she cannot drive for 6 month until seizure free, to avoid any heights, using heavy machinery or swimming unassisted (unsure when last seizure was). * Neurologically clear. The headache has resolved. We will sign off. Please reconsult if any concerns.
[2020-10-14] MEDS: PRAZOSIN 1 MG CAP PO SCH ×2 (14:38→22:22)
[2020-10-14] MEDS ORDERED: ENALAPRILAT 1.25 MG/ML 1 ML VIAL IVP PRN (16:46)
--- NOTE | 2020-10-14 18:29 | P.PN ---
Progress Note - Text Progress Note Date: 10/14/20 Chief Complaint: Short of breath History of presenting complaint: This is a 30-year-old patient who follows with an oncologist . 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 It does end wall several of her bones. Patient had presented to:[facility] in [place]. She was having accelerated hypertension. She says she left from there AMA because she was told she was a drug seeker was asking for Ativan. She then yesterday presented to [facility]. For that she was transferred here. She says she's been clean off methamphetamine, [place], occasionally taking fentanyl for last 15 months. Does smoke half a pack a day. Has a cough. Slight sputum. Denies any fever and chills. Appetite is fair. Denies any obvious chest pain. Patient is tearful as she say she is missing the children. No obvious edema. Patient's the ICU. On IV Cleviprex. Initially she was in a BiPAP and based on nasal cannula. Patient had received hemodialysis through recently. Patient admitted with hypertensive urgency, acute and chronic congestive heart failure exacerbation, possibly acute on chronic kidney disease. Patient was started on IV Lasix. Cleviprex drip. Uncontrolled anxiety. Started on Paxil October 13: ICU: Sitting up in bed. Oral intake better. Breathing is better. Blood pressure better controlled. Taken off the Cleviprex drip. Remains on IV Lasix. October 14: ICU: Blood pressure still running high. Patient up and about in the room. Eating better. Anxious. Coreg dose was increased to 25 mg twice a day by cardiology. I also added prazosin that she takes at home. twice daily. Patient is keen to go home. I told his of blood pressures running very high for her to be low to go home. Breathing better. Review of systems: Was done for constitutional, cardiovascular, GI, pulmonary. relevant finding as above Active Medications Acetaminophen (Acetaminophen Tab 325 Mg Tab) 650 mg PO Q6HR PRN PRN Reason: Fever and/ or Pain Last Admin: 10/14/20 02:23 Dose: 650 mg Documented by: Acetaminophen/Butalbital/Caffeine (Butalb/Apap/Caff 50-325-40mg Tab) 1 each PO Q4HR PRN PRN Reason: Headache Acetaminophen/Codeine Phosphate (Acetaminophen-Codeine 300-30mg Tab) 1 each PO Q4HR PRN PRN Reason: Pain Last Admin: 10/14/20 16:04 Dose: 1 each Documented by: Albuterol Sulfate (Albuterol Nebulized 2.5 Mg/3 Ml) 5 mg INHALATION RT-QID [facility] Last Admin: 10/14/20 15:37 Dose: Not Given Documented by: Amlodipine Besylate (Amlodipine 5 Mg Tab) 5 mg PO DAILY [facility] Last Admin: 10/14/20 09:02 Dose: 5 mg Documented by: Carvedilol (Carvedilol 12.5 Mg Tab) 25 mg PO BID-W/MEALS [facility] Diphenhydramine HCl (Diphenhydramine 50 Mg/Ml 1 Ml Vial) 25 mg IVP Q6HR PRN PRN Reason: Allergy Symptoms Enalaprilat (Enalaprilat 1.25 Mg/Ml 1 Ml Vial) 1.25 mg IVP Q4HR PRN PRN Reason: Blood Pressure - High Last Admin: 10/14/20 16:55 Dose: 1.25 mg Documented by: Enoxaparin Sodium (Enoxaparin 30 Mg/0.3 Ml Syringe) 30 mg SQ DAILY [facility] Last Admin: 10/14/20 09:02 Dose: 30 mg Documented by: Famotidine (Famotidine 20 Mg Tab) 20 mg PO DAILY [facility] Last Admin: 10/14/20 09:02 Dose: 20 mg Documented by: Furosemide (Furosemide 20 Mg Tab) 60 mg PO BID@0900,1600 [facility] Last Admin: 10/14/20 12:51 Dose: 60 mg Documented by: Hydralazine HCl (Hydralazine Hcl 20 Mg/Ml 1 Ml Vial) 10 mg IVP Q4HR PRN PRN Reason: Blood Pressure - High Last Admin: 10/14/20 16:05 Dose: 10 mg Documented by: Lorazepam (Lorazepam 2 Mg/Ml Inj) 2 mg IV Q4HR PRN PRN Reason: Anxiety Last Admin: 10/14/20 06:41 Dose: 2 mg Documented by: Miscellaneous Information (Pneumonia Protocol Utilized 1 Each Misc) 1 each PO ONCE PRN PRN Reason: Per Protocol Naloxone HCl (Naloxone 0.4 Mg/Ml 1 Ml Vial) 0.2 mg IV Q2M PRN PRN Reason: Opioid Reversal Nicotine Polacrilex (Nicotine Polacrilex 2 Mg Gum) 2 mg BUCCAL Q2HR PRN PRN Reason: Nicotine Cravings Last Admin: 10/13/20 21:17 Dose: 2 mg Documented by: Ondansetron HCl (Ondansetron 4 Mg/2 Ml Vial) 4 mg IVP Q8HR PRN PRN Reason: Nausea And Vomiting Paroxetine HCl (Paroxetine 10 Mg Tab) 10 mg PO DAILY [facility] Last Admin: 10/14/20 09:02 Dose: 10 mg Documented by: Prazosin HCl (Prazosin 1 Mg Cap) 2 mg PO BID [facility] Last Admin: 10/14/20 14:38 Dose: 2 mg Documented by: Sevelamer Carbonate (Sevelamer 800 Mg Tab) 800 mg PO TID-W/MEALS [facility] Last Admin: 10/14/20 12:48 Dose: 800 mg Documented by: Sodium Bicarbonate (Sodium Bicarbonate Tab 650 Mg Tab) 650 mg PO BID [facility] Last Admin: 10/14/20 09:02 Dose: 650 mg Documented by: Spironolactone (Spironolactone 25 Mg Tab) 50 mg PO DAILY [facility] Last Admin: 10/14/20 09:02 Dose: 50 mg Documented by: Zolpidem Tartrate (Zolpidem 5 Mg Tab) 2.5 mg PO HS PRN PRN Reason: Insomnia Past medical history to include: Heart failure, hypertension, diabetes insipidus, histocytosis X, chronic kidney disease, hypertension, anxiety Social history: Lives with her . Smokes half a pack a day. Also does smoke marijuana. Says has been clean for last 15 months. Methamphetamine and [place]. It also occasionally do fentanyl. Family history: Reviewed, noncontributory to presentation Physical examination: VITAL SIGNS: Afebrile, 89, 20, 1 daily 3 x 1 20, 98% room air GENERAL: Sitting up, comfortable EYES: Pupils equal. Conjunctiva normal. HEENT: External appearance of nose and ears normal, oral cavity grossly normal. NECK: JVD not raised; masses not palpable. HEART: First and second heart sounds are normal; no edema. LUNGS: Respiratory rate normal, decreased breath sounds. ABDOMEN: Soft, nontender, liver spleen not palpable, no masses palpable. PSYCH: [Alert and oriented x3; mood and affect anxious. INVESTIGATIONS, reviewed in the clinical context: October 14: Hemoglobin 10.2 potassium 4 creatinine 2.63 October 13: WBC 8.7 hemoglobin 10.7 platelets 234 potassium 3.5. 52 creatinine 2.86 Urine drug screen positive for opiates, benzodiazepine Renal ultrasound: No hydronephrosis. Corticomedullary different sensation is maintained. Cortical echogenicity is increased. WBC 17.1 hemoglobin 11.4 platelets 290 potassium 4.2 BUN 48 creatinine 2.59 AST 63 ALT 55 Troponin I 0.137, 0.150 CRP 0.8 ProBNP 02165 EKG tracing personally reviewed by me-normal sinus rhythm, LVH with some ST segment changes Chest x-ray film personally reviewed by me-questionable infiltrate Assessment and plan: -Hypertensive urgency slow to respond IVCleviprex drip-discontinued. Coreg increased to 25 mg twice daily. Rouses and 2 mg twice daily added. -Acute congestive heart failure exacerbation from hypertensive heart disease- improving IV Lasix 80 mg every 12. Changed over to 60 mg by mouth twice daily -Acute on chronic kidney disease. Baseline creatinine is not known. . Strict I's and O's. . Patient making good urine -Chronic nicotine dependence, patient cigarette smoker Nicotine patch -Anxiety not otherwise specified Paxil 10 mg a day. -Histocytosis X -Acute hypoxic respiratory failure from CHF.-Improved Initially on a BiPAP. Currently 98% room air -Chronic migraine with acute exacerbation from uncontrolled blood pressure Neurology consulted. 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 Sodium bicarbonate by mouth -[Patient's claim she has history of diabetes insipidus at be to treat insufficiency. Currently no evidence of the same] Care was discussed at length with the patient. Discussed about anxiety and counseling. She does does as an outpatient. She is only on Paxil. Coreg has been increased to 25 mg twice daily. Prazosin added. Dialysis catheter to be removed later today. Discussed with Dr. Cade from nephrology. Changed to Lasix 60 mg twice a day. Total time spent today about 45 minutes with over 25 minutes of discussion.
--- NOTE | 2020-10-14 19:05 | PCN ---
PROCEDURE NOTE PREOPERATIVE DIAGNOSIS: Acute on chronic renal failure. PROCEDURE: Removal of the dialysis catheter right jugular approach. DESCRIPTION OF PROCEDURE: The patient was seen in the intensive care unit. Right side of the chest and neck was prepped and drapes applied in the usual sterile manner. 1% lidocaine was infiltrated at the exit site of the catheter. A small incision was made. After that, we went circumferentially around the cuff. The catheter was removed and pressure was held. After that, we closed the incision with 3-0 nylon and dressing applied. Patient tolerated the procedure well. The stitches have to be removed within a week. MMODL / IJN: [id number] /
[2020-10-15 00:12] VITALS: RESP 16
[2020-10-15 04:06] LABS: Potassium 4.3 mmol/L (3.5-5.1)
[2020-10-15] MEDS: SEVELAMER 800 MG TAB PO SCH ×2 (07:02→12:09)
[2020-10-15] MEDS: carvediloL 12.5 MG TAB PO SCH (07:02)
[2020-10-15] MEDS: Acetaminophen-Codeine 300-30mg TAB PO PRN ×2 (07:03→12:09)
[2020-10-15] MEDS: ALBUTEROL NEBULIZED 2.5 MG/3 ML INHALATION SCH ×2 (08:11→11:36)
[2020-10-15] MEDS: FUROSEMIDE 20 MG TAB PO SCH (08:37)
[2020-10-15] MEDS: ENOXAPARIN 30 MG/0.3 ML SYRINGE SQ SCH (08:37)
[2020-10-15] MEDS: FAMOTIDINE 20 MG TAB PO SCH (08:37)
[2020-10-15] MEDS: amLODIPine 5 MG TAB PO SCH (08:37)
[2020-10-15] MEDS: PRAZOSIN 1 MG CAP PO SCH (08:38)
[2020-10-15] MEDS: SPIRONOLACTONE 25 MG TAB PO SCH (08:38)
[2020-10-15] MEDS: SODIUM BICARBONATE TAB 650 MG TAB PO SCH (08:38)
[2020-10-15] MEDS: PARoxetine 10 MG TAB PO SCH (08:38)
--- NOTE | 2020-10-15 10:55 | P.PN ---
Subjective This is a 30-year-old woman with medical history of seizure, histocytosis X, hypertension, chronic kidney disease was on hemodialysis June 2020, congestive heart failure, diabetes insipidus, uncontrolled hypertension, hypopituitarism, diabetes, anxiety, nicotine use and history of cocaine use, marijuana use. Cardiology is consulted for congestive heart failure and hypertension. Patient was transferred to [facility] for increased shortness of breath, acute pulmonary edema, acute hypertensive emergency. On admission patient's blood pressure was 211/137, she was placed on a non-rebreather. Patient was admitted to the ICU. Patient was started on Cleviprex drip, IV Hydralazine PRN, PO Coreg, IV Lasix. Nephrology and Pulmonary was consulted. Neurology was consulted for persistant headaches. Patient's home medications include Zestril 25 mg twice a day when necessary, spironolactone 50 mg daily, prazosin 2 mg daily, carvedilol 25 mg twice a day Subjective the brain revealed no acute intracranial abnormality. EKG- sinus rhythm, heart rate 92, T wave inversions in leads I and aVL and V6, LVH. 10/13/2020: Patient maintained on Cleviprex drip 13 mg/hr, carvedilol 6.25 mg twice a day, Lasix 80 mg twice a day, hydralazine 10 mg IV when necessary, spironolactone 50 mg daily. Cleviprex drip stopped. Troponin 0.13, 0.15, 0.13. ProBNP 31,900. Blood cultures- preliminary results- negative to date. Echocardiogram revealed an EF of 50-55%, mild aortic regurgitation, mild mitral regurgitation, tricuspid regurgitation, mild pulmonary hypertension RVSP 44 mmHg, RA mass in. Small generalized pericardial effusion 10/14/2020: Blood pressure 171/117, heart rate 105, afebrile, maintaining saturations 96% on room air. Laboratory reviewed WBC 10.2, platelets 235, sodium 135, potassium 4.0, BUN 50, serum creatinine 2.6. Ultrasound was negative for renal artery stenosis. Increase patient's Carvediolol to 25mg BID and started amlodipine 5mg daily Patients HD catheter was removed 10/15/2020: Patient seen and examined in the ICU, no acute distress. Patient states she believes her elevated BP is due to anxiety, PTSD and pain. She was given Tylenol 3 overnight Q 4hr. She also is currently being maintained on amlodipine 5 mg daily, carvedilol 25 mg twice a day, Lasix 40 mg twice daily, prazosin 2 mg twice a day, spironolactone 50 mg daily. Patient's BP has significantly improved. Blood pressure 120/83, heart rate 75, afebrile, maintaining saturations ON room air. Laboratory data reviewed sodium 131, potassium 4.3, BUN 51, serum creatinine 3.1. Patient requesting to go home. GENERAL: Well-appearing, well-nourished and in no acute distress. NECK: Supple without JVD or thyromegaly. LUNGS: Breath sounds clear to auscultation bilaterally. Respiration equal and unlabored. No wheezes, rales or rhonchi. HEART: Regular rate and rhythm. Systolic murmur EXTREMITIES: Normal range of motion, no edema. No clubbing or cyanosis. Peripheral pulses intact. ASSESSMENT Elevated troponin, not consistent with acute coronary syndrome. Chronic kidney disease, unknown baseline renal function. Hypertensive emergency Metabolic acidosis Acute pulmonary edema History of seizure disorder History of cocaine and marijuana use History of histiocytosis X Chronic nicotine dependence PLAN Recommend continuing patient on amlodipine 5mg daily, and her home medication carvedilol 25mg BID, Prazosin 2mg daily, spironolactone 50mg daily Diuretics per nephrology From a cardiology perspective, patient is stable to be discharged home. Patient can follow up with Dr. Stallworth in the outpatient office. Nurse Practitioner note has been reviewed, I agree with a documented findings and plan of care. Patient was seen and examined. Objective - Vital Signs Vital signs: Vital Signs Temp 98.5 F 10/15/20 08:00 Pulse 75 10/15/20 08:00 Resp 16 10/15/20 08:00 BP 123/83 10/15/20 08:00 Pulse Ox 95 10/15/20 08:00 Intake & Output 10/14/20 10/15/20 10/15/20 18:59 06:59 18:59 Output Total 575 675 Balance -575 -674 Output: Urine 575 675 Other: Voiding Method Toilet Toilet Toilet # Voids 3 - Labs CBC & Chem 7: 10/14/20 03:17 10/15/20 02:57 Labs: Abnormal Lab Results - Last 24 Hours (Table) 10/15/20 Range/Units 02:57 Sodium 131 L (137-145) mmol/L BUN 51 H (7-17) mg/dL Creatinine 3.19 H (0.52-1.04) mg/dL Microbiology - Last 24 Hours (Table) 10/12/20 07:52 Blood Culture - Preliminary Blood No Growth after 72 hours 10/12/20 07:58 Blood Culture - Preliminary Blood No Growth after 72 hours
--- NOTE | 2020-10-15 11:41 | PN ---
PROGRESS NOTE The patient is seen for followup for chronic kidney disease and acute kidney injury. The patient was admitted to the hospital with shortness of breath. She was volume overloaded and has been diuresed. She has history of dialysis dependent acute renal failure from January to June and patient has been off dialysis since June of 2020. Her PermCath was discontinued yesterday. Serum creatinine has been about 2.6-2.8 mg/dL. However, this morning it was up to 3.1. The patient has had good urine output. Her Lasix dose was decreased today. Blood pressure was significantly elevated and it is improved today. PHYSICAL EXAMINATION: On examination today, blood pressure 117/79, heart rate 75 per minute, she is afebrile. Examination of the heart S1, S2. Examination of the lungs, decreased breath sounds at the bases. Abdomen is soft, nontender. Examination of lower extremities shows no significant edema. [employer] exam grossly intact. LAB: Show sodium 131, potassium 4.3, BUN 51, creatinine 3.19. ASSESSMENT: 1. Acute kidney injury cardiorenal. Creatinine had improved, but it is elevated today, most likely secondary to recent diuresis and change in blood pressure. Continue current antihypertensive regimen. The patient had been receiving IV Vasotec as well. 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 2. Hypertension currently controlled. Maintained on Aldactone, prazosin and Coreg. Getting p.r.n. hydralazine and IV Vasotec. 3. Chronic kidney disease, mineral bone disorder, maintained on Renvela. 4. Metabolic acidosis associated with renal failure, currently maintained on sodium bicarb. PLAN: Decrease Lasix to 40 mg daily. Decrease sodium bicarb to daily. Follow up with Nephrology as outpatient. Monitor volume status as outpatient and increase diuretics if needed. This is discussed with the patient. 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 MMODL / IJN: [id number] /
[2020-10-15 13:21] VITALS: BP 137/96; PULSE 73; TEMP 98
--- NOTE | 2020-10-15 13:26 | CDI ---
Documentation Clarification Form Date: 10/15/2020 12:49:42 PM From: Nehal Aldridge RN, CCDS Admit Date: 10/12/2020 06:51:00 AM Patient Name: Melody Ly Visit Number: [id number] Discharge Date: ATTENTION: The Clinical Documentation Specialists (CDI) and [facility] Coding Staff appreciate your assistance in clarifying documentation. Please respond to the clarification below the line at the bottom and electronically sign. The CDI & [facility] Coding staff will review the response and follow-up if needed. Please note: Queries are made part of the Legal Health Record. If you have any questions, please contact the author of this message via ITS. Dr. Brenden Ramirez Your patient has the documented diagnosis acute congestive heart failure form hypertensive heart disease. Additional information regarding the type of CHF is requested. History/Risk Factors: Histiocytosis, Congestive heart failure, Hypertension, chronic kidney failure, Current every day smoker Clinical Indicators: 30-year-old female present to ED transferred from [facility] for hypertensive emergency with CHF and respiratory failure on BiPAP and acute on chronic renal failure per ER documentation on 10/12/2020. She was short of breath. 10/12 05:52 VS/Pulse OX: 211/137 98 20 98.1 10/12 BNP: 77008 10/13 Echocardiogram Results: Overall left ventricular systolic function is low- normal with, an EF between 50-55% There is mild pulmonary hypertension. There is a small, generalized pericardial effusion present 10/12 Chest X Ray: mild hazy increased density in the mild to lower lungs bilateral consistent with mild pulmonary edema or interstitial pneumonitis. Treatment: Coreg 25 MG PO BID Lasix 60 MG PO BID 10/14 -10/15 Lasix 40 MG PO BID 10/15 Aldactone 50 MG PO Daily Norvasc 5 MG PO Daily 10/14 Lasix 80 MG IV Q 12 10/12 -10/14 In your professional opinion, can you please clarify the type of CHF if known? [ ] Acute Systolic Heart Failure (reduced EF) [ ] Acute on Chronic Systolic Heart Failure (reduced EF) [ ] Acute Diastolic Heart Failure (preserved EF) [ ] Acute on Chronic Diastolic Heart Failure (preserved EF) [ ] Other, please specify [ ] Unable to determine (Template Last Revised: May 2020) Acute on chronic diastolic heart failure with preserved EF MTDD
[2020-10-15] MEDS ORDERED: FUROSEMIDE 40 MG TAB PO SCH (16:00)
--- NOTE | 2020-10-15 20:59 | P.DS ---
Providers Date of admission: 10/12/20 06:51 Expected date of discharge: 10/15/20 Attending physician: Brenden Ramirez Consults: 10/12/20 06:50 Consult Physician Routine Consulting Provider: Alessandra Frias Consult Reason/Comments: chf/HTN Do you want consulting provider notified?: Yes Consult Physician Routine Consulting Provider: Eli Cade Consult Reason/Comments: chf,htn Do you want consulting provider notified?: Yes 10/12/20 06:55 Consult Physician Routine Consulting Provider: Monie Jorgensen Consult Reason/Comments: BiPap Do you want consulting provider notified?: Yes 10/12/20 12:10 Consult Physician Routine Consulting Provider: Eliud Matos Consult Reason/Comments: persistent headaches Do you want consulting provider notified?: Yes 10/14/20 10:55 Consult Physician Routine Consulting Provider: Michael Troy Consult Reason/Comments: removal of hemodialysis catheter Do you want consulting provider notified?: Yes Primary care physician: [facility] Course: Chief Complaint: Short of breath History of presenting complaint: This is a 30-year-old patient who follows with an oncologist . 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 It does end wall several of her bones. Patient had presented to:[facility] in [place]. She was having accelerated hypertension. She says she left from there AMA because she was told she was a drug seeker was asking for Ativan. She then yesterday presented to [facility]. For that she was transferred here. 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 Does smoke half a pack a day. Has a cough. Slight sputum. Denies any fever and chills. Appetite is fair. Denies any obvious chest pain. Patient is tearful as she say she is missing the children. No obvious edema. Patient's the ICU. On IV Cleviprex. Initially she was in a BiPAP and based on nasal cannula. Patient had received hemodialysis through recently. Patient admitted with hypertensive urgency, acute and chronic congestive heart failure exacerbation, possibly acute on chronic kidney disease. Patient was started on IV Lasix. Cleviprex drip. Uncontrolled anxiety. Started on Paxil October 13: ICU: Sitting up in bed. Oral intake better. Breathing is better. Blood pressure better controlled. Taken off the Cleviprex drip. Remains on IV Lasix. October 14: ICU: Blood pressure still running high. Patient up and about in the room. Eating better. Anxious. Coreg dose was increased to 25 mg twice a day by cardiology. I also added prazosin that she takes at home. twice daily. Patient is keen to go home. I told his of blood pressures running very high for her to be low to go home. Breathing better. 2-D echocardiogram was reviewed by cardiology: Not for any further intervention October 15: Blood pressure well controlled. Breathing much better. Oral intake is improved. Anxiety better. Care was discussed at length with the patient. She is to follow-up with her group tester, cardiology, PCP. Paxil can be titrated by her PCP. Consultation: Dr. Cade from nephrology Dr. Bledsoe from neurology Dr. Perrin from [facility] Past medical history to include: Heart failure, hypertension, diabetes insipidus, histocytosis X, chronic kidney disease, hypertension, anxiety Social history: Lives with her . Smokes half a pack a day. Also does smoke marijuana. Says has been clean for last 15 months. Methamphetamine and [place]. It also occasionally do fentanyl. Family history: Reviewed, noncontributory to presentation Physical examination: VITAL SIGNS: 98, 73, 16, 137/96, 95% room air GENERAL: Sitting up, comfortable EYES: Pupils equal. Conjunctiva normal. HEENT: External appearance of nose and ears normal, oral cavity grossly normal. NECK: JVD not raised; masses not palpable. HEART: First and second heart sounds are normal; no edema. LUNGS: Respiratory rate normal, decreased breath sounds. ABDOMEN: Soft, nontender, liver spleen not palpable, no masses palpable. PSYCH: [Alert and oriented x3; mood and affect anxious. INVESTIGATIONS, reviewed in the clinical context: October 15: Potassium 4.3 BUN 51 and creatinine 3.19 Renal artery duplex: No evidence of renal artery stenosis. Suggestion of chronic kidney disease October 14: Hemoglobin 10.2 potassium 4 creatinine 2.63 2-D echocardiogram: Severe concentric LVH. EF 50-55%. October 13: WBC 8.7 hemoglobin 10.7 platelets 234 potassium 3.5. 52 creatinine 2.86 Urine drug screen positive for opiates, benzodiazepine Renal ultrasound: No hydronephrosis. Corticomedullary different sensation is maintained. Cortical echogenicity is increased. WBC 17.1 hemoglobin 11.4 platelets 290 potassium 4.2 BUN 48 creatinine 2.59 AST 63 ALT 55 Troponin I 0.137, 0.150 CRP 0.8 ProBNP 54404 EKG tracing personally reviewed by me-normal sinus rhythm, LVH with some ST segment changes Chest x-ray film personally reviewed by me-questionable infiltrate Assessment and plan: -Hypertensive urgency : Controlled IVCleviprex drip-discontinued. Coreg 25 mg twice daily. Prazosin 2 mg twice daily . Norvasc 5 mg daily -Acute congestive heart failure exacerbation from hypertensive heart improved IV Lasix 80 mg every 12. Changed over to 60 mg by mouth twice daily -Acute on chronic kidney disease. Baseline creatinine is not known. . Strict I's and O's. . Patient making good urine. Creatinine 3.19 -Chronic nicotine dependence, patient cigarette smoker Nicotine patch -Anxiety not otherwise specified Paxil 10 mg a day. -Histocytosis X -Acute hypoxic respiratory failure from CHF.-Improved Initially on a BiPAP. Currently 98% room air -Chronic kidney disease likely hypertensive nephrosclerosis stage III Follow with nephrology -Chronic kidney disease with minimal bone disease Renvela -Chronic migraine with acute exacerbation from uncontrolled blood pressure Neurology consulted. Fioricet when necessary -Acute bronchospasm from smoking Albuterol nebulizer -Hyperphosphatemia secondary to chronic kidney disease sevelamer -Metabolic acidosis from kidney failure.: Improved Sodium bicarbonate by mouth -[Patient's claim she has history of diabetes insipidus at be to treat insufficiency. Currently no evidence of the same] Disposition: Home Plan - Discharge Summary Discharge Rx Participant: Yes New Discharge Prescriptions: New Furosemide [Lasix] 40 mg PO BID@0900,1600 #60 tab PARoxetine [Paxil] 10 mg PO DAILY #30 tab Famotidine [Pepcid] 20 mg PO DAILY #60 tab Sevelamer [Renvela] 800 mg PO TID-W/MEALS #90 tab amLODIPine [Norvasc] 5 mg PO DAILY #30 tab Albuterol Sulfate [Albuterol Sulfate Hfa] 2 puff PO Q4H PRN #1 inhaler PRN Reason: Wheezing Continue Spironolactone 50 mg PO DAILY hydrOXYzine pamoate [Vistaril] 25 mg PO Q12H PRN PRN Reason: Anxiety Carvedilol [Coreg] 25 mg PO BID Changed Prazosin HCl [Minipress] 2 mg PO BID #60 cap Discharge Medication List Carvedilol [Coreg] 25 mg PO BID 10/12/20 [History] Spironolactone 50 mg PO DAILY 10/12/20 [History] hydrOXYzine pamoate [Vistaril] 25 mg PO Q12H PRN 10/12/20 [History] Albuterol Sulfate [Albuterol Sulfate Hfa] 2 puff PO Q4H PRN #1 inhaler 10/15/20 [Rx] Famotidine [Pepcid] 20 mg PO DAILY #60 tab 10/15/20 [Rx] Furosemide [Lasix] 40 mg PO BID@0900,1600 #60 tab 10/15/20 [Rx] PARoxetine [Paxil] 10 mg PO DAILY #30 tab 10/15/20 [Rx] Prazosin HCl [Minipress] 2 mg PO BID #60 cap 10/15/20 [Rx] Sevelamer [Renvela] 800 mg PO TID-W/MEALS #90 tab 10/15/20 [Rx] amLODIPine [Norvasc] 5 mg PO DAILY #30 tab 10/15/20 [Rx] Follow up Appointment(s)/Referral(s): group testerdr [Other] - 1 Week Ger Sparks MD [REFERRING] - 1 Week Selvin Stallworth MD [STAFF PHYSICIAN] - 2 Weeks Activity/Diet/Wound Care/Special Instructions: bmp - 3 days Discharge Disposition: HOME SELF-CARE
[2020-10-16] MEDS ORDERED: SODIUM BICARBONATE TAB 650 MG TAB PO SCH (09:00)
== END 2020-10-15 13:50 | disposition home or self-care (01) | DRG 291 ==
LOC: EC 05:51 → 2SICU 06:51
PROVIDERS: ADMIT Hospitalist; ATTEND Hospitalist
PROC: 5A09357 Assistance with Respiratory Ventilation, Less than 24 Consecutive Hours, Continuous Positive Airway Pressure (ICD-10-PCS; 2020-10-12)
PROC: 02PY33Z Removal of Infusion Device from Great Vessel, Percutaneous Approach (ICD-10-PCS; principal; 2020-10-14)
DX: I13.2 Hypertensive heart and chronic kidney disease with heart failure and with stage 5 chronic kidney disease, or end stage renal disease (principal); J96.01 Acute respiratory failure with hypoxia; N18.6 End stage renal disease; I50.33 Acute on chronic diastolic (congestive) heart failure; J45.901 Unspecified asthma with (acute) exacerbation; I16.1 Hypertensive emergency; E87.2 Acidosis; N17.9 Acute kidney failure, unspecified; I31.3 Pericardial effusion (noninflammatory); D76.3 Other histiocytosis syndromes; Z20.822 Contact with and (suspected) exposure to COVID-19; I50.9 Heart failure, unspecified; F17.210 Nicotine dependence, cigarettes, uncomplicated; Z99.2 Dependence on renal dialysis; F12.90 Cannabis use, unspecified, uncomplicated; E83.39 Other disorders of phosphorus metabolism; G43.909 Migraine, unspecified, not intractable, without status migrainosus; G40.909 Epilepsy, unspecified, not intractable, without status epilepticus; F43.10 Post-traumatic stress disorder, unspecified; F41.9 Anxiety disorder, unspecified; G89.4 Chronic pain syndrome; M89.9 Disorder of bone, unspecified; I27.20 Pulmonary hypertension, unspecified; Z79.899 Other long term (current) drug therapy; G44.85 Primary stabbing headache
CPT/HCPCS: 36415; 70450; 71045; 76770; 80048; 80053; 80306; 81001; 82088; 82550; 83605; 83690; 83735; 83880; 84100; 84244; 84484; 85025; 85610; 85730; 86140; 87040; 93005; 93306; 93975; 94640; 94660; 96374; 96375; 99291

== ENCOUNTER → 2021-05-01 | Outpatient (CLI) | payer OTHER ==
--- NOTE | 2021-05-03 11:37 | PE ---
EXAMINATION TYPE: PET CT fusion whole body DATE OF EXAM: 05/01/2021 COMPARISON: NONE HISTORY: History of brain cancer in childhood with surgical treatment and chemotherapy ended 1994. La ngerhans cell histocytosis X. History of cervical ablation 2008. Unknown primary neoplasm. TECHNIQUE: Following the intravenous administration of 7.35 mCi of F-18 FDG, whole body images are p erformed from the skull base to the midthigh. Images are reviewed on the computer in the coronal, ax ial, and sagittal planes. Reconstructed rotating images are created on independent workstation and r eviewed on the computer. A localization and attenuation correction CT is performed in conjunction w ith the PET scan. Blood glucose level equals 110 SCAN: Initial Scan FINDINGS: SKULL BASE AND NECK: Symmetric uptake of the vocal cords presumed physiologic. No suspicious areas o f abnormal hypermetabolic uptake. CHEST, MEDIASTINUM, AND HILAR REGION: No suspicious areas of abnormal hypermetabolic uptake. ABDOMEN AND PELVIS: Normal uptake in bladder. No areas of abnormal hypermetabolic uptake. OSSEOUS STRUCTURES: No areas of abnormal hypermetabolic uptake. OTHER CT: Small caliber bilateral maxillary sinuses. Posterior 5.0 x 2.4 cm thin-walled fluid collect ion could reflect sebaceous cyst or other dermatologic etiology axial image 53. Correlate clinically. Mild to moderate emphysematous change in the visualized upper lungs. Mild cardiomegaly. Enlarged pulm onary arteries suggesting underlying pulmonary artery hypertension. Small pericardial effusion anteri or inferior aspect. Patient has little intra-abdominal fat. Scattered pelvic phleboliths. Scoliotic curvature in the thor acolumbar spine. IMPRESSION: No abnormal hypermetabolic uptake to suggest new or Recurrent active malignancy.
== END | disposition home or self-care (01) ==
LOC: RADPETMAIN 13:51
PROVIDERS: ATTEND Internal Medicine Hematology & Oncology
DX: C80.1 Malignant (primary) neoplasm, unspecified (principal); I31.3 Pericardial effusion (noninflammatory); I28.8 Other diseases of pulmonary vessels; Z85.841 Personal history of malignant neoplasm of brain
CPT/HCPCS: 78816; A9552